=== PATIENT | female | born 1985 | race Caucasian/White ===

== ENCOUNTER 2017-04-02 14:54 | Emergency (ER) | payer OTHER ==
[2017-04-02 15:34] VITALS: BP 130/83; PULSE 81; TEMP 98.7; BMI 34.4
--- NOTE | 2017-04-02 15:34 | PDOC ---
Rapid Medical Evaluation Chief Complaint: Pain, Acute Time Seen by Provider: 04/02/17 15:30 Medical Evaluation: Allergies Allergy/AdvReac Type Severity Reaction Status Date / Time ondansetron Allergy Verified 04/02/17 15:29 04/02/17 15:31 I have performed a brief in-person evaluation of this patient. The patient presents with a chief complaint of nausea, vomiting and diarrhea x 4-5 days. States feeling pressure in mid chest with no shortness of breath or dizziness. Sent to ed from [facility] Pertinent physical exam findings: NAD unlabored breathing, lungs cta heart s1s2 abdomen obese +bowel sounds non tender I have ordered the following: urine hcg labs The patient will proceed to the Ed for further evaluation.
[2017-04-02 16:29] LABS: BASO % 0.4 % (0-2.0); EOS % 0.6 % (0-4.5); HEMATOCRIT 45.5 % (32.4-45.2); HEMOGLOBIN 15.1 GM/dL (10.7-15.3); LYMPH % 21.6 % (8-40); MCHC 33.3 g/dl (32.0-36.0); MEAN CELL VOLUME 84.3 fl (80-96); MEAN PLT VOLUME 8.6 fl (7.5-11.1); MONO % 5.9 % (3.8-10.2); NEUT % 71.5 % (42.8-82.8); PLATELET COUNT 409 K/MM3 (134-434); RDW 13.5 % (11.6-15.6); WHITE BLOOD COUNT 11.8 K/mm3 (4.0-10.0)
[2017-04-02 16:53] LABS: INR 1.11 (0.82-1.09); PROTHROMBIN TIME (PATIENT) 12.5 SEC (9.98-11.88)
[2017-04-02 16:56] LABS: ACTIVATED PTT 28.8 SECONDS (26.9-34.4)
[2017-04-02 17:04] LABS: CALCIUM 8.9 mg/dL (8.5-10.1); CHLORIDE 105 mmol/L (98-107); POTASSIUM 3.7 mmol/L (3.5-5.1); SODIUM 140 mmol/L (136-145)
[2017-04-02 17:12] LABS: ALBUMIN 3.7 g/dl (3.4-5.0); ALK PHOS 63 U/L (45-117); ANION GAP 9 (8-16); BILIRUBIN,TOTAL 0.5 mg/dL (0.2-1.0); BLOOD UREA NITROGEN 10 mg/dL (7-18); CO2 26 mmol/L (21-32); CREATININE 0.4 mg/dL (0.55-1.02); GLUCOSE,RANDOM 126 mg/dL (74-106); SGOT/AST 31 U/L (15-37); SGPT/ALT 56 U/L (12-78); TOT PROT 7.2 g/dl (6.4-8.2)
[2017-04-02] MEDS ORDERED: SODIUM CHLORIDE 500 ML IV STA (19:27)
[2017-04-02] MEDS ORDERED: MAG HYDROX/AL HYDROX/SIMETH 30 ML UNIT-DOSE CUP PO ONE (20:20)
[2017-04-02] MEDS ORDERED: MAG HYDROX/AL HYDROX/SIMETH 30 ML UNIT-DOSE CUP ONE (20:22)
[2017-04-02] MEDS ORDERED: FAMOTIDINE 20 MG/50 ML IVPB 20 MG/50 ML MG IVPB ONE (20:22)
[2017-04-02] MEDS ORDERED: FAMOTIDINE IV 20 MG/12 ML VIAL IVPUSH ONE (20:36)
--- NOTE | 2017-04-02 21:40 | PDOC ---
History of Present Illness - General History Source: Patient Exam Limitations: No Limitations - History of Present Illness Initial Comments: 04/02/17 21:42 The patient is a 31 year old female with history of hyperlipidemia, diabetes who presents to the ED complaining of several days of nausea, NBNB vomiting, and diarrhea with mild epigastric discomfort. No fever or chills. No chest pain or shortness of breath. No headache, blurred vision, or paresthesias. No constipation. <Gisell Simmons - Last Filed: 04/02/17 21:42> <Charo Whipple - Last Filed: 04/02/17 22:41> - General Chief Complaint: Pain, Acute Stated Complaint: VOMITING/DIARRHEA/CHEST PAIN Time Seen by Provider: 04/02/17 15:30 Past History <Gisell Simmons - Last Filed: 04/02/17 21:42> - Past Medical History COPD: No Diabetes: Yes Disorders: Yes (IRREGULAR MENSES, UTI) Hypercholesterolemia: Yes - Family Disease History Family Disease History: Diabetes: Grandparents, Mother - Reproductive History Cervical CA: No Dysfunctional Uterine Bleeding: No Ectopic : No Endometrial CA: No Polycystic Ovaries: No Tubal Ligation: No - Immunization History Immunization Up to Date: Yes - Suicide/Smoking/Psychosocial Hx Smoking Status: No Smoking History: Never smoked Have you smoked in the past 12 months: No Number of Cigarettes Smoked Daily: 0 Information on smoking cessation initiated: No Hx Alcohol Use: No Drug/Substance Use Hx: No Substance Use Type: None <Charo Whipple - Last Filed: 04/02/17 22:41> - Past Medical History Allergies/Adverse Reactions: Allergies Allergy/AdvReac Type Severity Reaction Status Date / Time ondansetron Allergy Verified 04/02/17 15:29 Home Medications: Ambulatory Orders Glyburide/Metformin HCl [Glyburide-Metformin 2.5-500 mg] 1 each PO BID 08/30/15 Losartan Potassium 50 mg PO DAILY 08/30/15 Metoclopramide HCl [Reglan] 10 mg PO BID PRN #10 tablet 08/30/15 Abd/GI Specific PMHX - Complaint Specific PMHX Colitis: No Diverticulitis: No Gall Bladder Disease: No GERD: No Hepatitis: No Irritable Bowel Synd (IBS): No Pancreatitis: No GI Ulcer Disease: No <Charo Whipple - Last Filed: 04/02/17 22:41> Review of Systems - Review of Systems Able to Perform ROS?: Yes Comments:: 04/02/17 21:44 CONSTITUTIONAL: Absent: fever, chills, diaphoresis, generalized weakness, malaise, loss of appetite HEENT: Absent: rhinorrhea, nasal congestion, throat pain, throat swelling, difficulty swallowing, mouth swelling, ear pain, eye pain, visual Changes CARDIOVASCULAR: Absent: chest pain, syncope, palpitations, irregular heart rate, lightheadedness , peripheral edema RESPIRATORY: Absent: cough, shortness of breath, dyspnea with exertion, orthopnea, wheezing, stridor, hemoptysis GASTROINTESTINAL: Present: nausea, epigastric pain, NBNB, diarrhea Absent: abdominal distension, constipation, melena, hematochezia GENITOURINARY: Absent: dysuria, frequency, urgency, hesitancy, hematuria, flank pain, genital pain MUSCULOSKELETAL: Absent: myalgia, arthralgia, joint swelling SKIN: Absent: rash, itching, pallor HEMATOLOGIC/IMMUNOLOGIC: Absent: easy bleeding, easy bruising, lymphadenopathy, frequent infections ENDOCRINE: Absent: unexplained weight gain, unexplained weight loss, heat intolerance, cold intolerance NEUROLOGIC: Absent: headache, focal weakness or paresthesias, dizziness, unsteady gait, seizure, mental status changes, bladder or bowel incontinence PSYCHIATRIC: Absent: anxiety, depression, suicidal or homicidal ideation, hallucinations. <Gisell Simmons - Last Filed: 04/02/17 21:42> *Physical Exam - Vital Signs Last Vital Signs Temp Pulse Resp BP Pulse Ox 98.7 F 81 16 130/83 97 04/02/17 15:30 04/02/17 15:30 04/02/17 15:30 04/02/17 15:30 04/02/17 15:30 - Physical Exam Comments: 04/02/17 21:46 GENERAL: Well developed, well nourished. Awake and alert. No acute distress. HEENT: +Dry mucous membranes. Normocephalic, atraumatic. PERRLA, EOMI. No conjunctival pallor. Sclera are non-icteric. Oropharynx is clear. NECK: Supple. Full ROM. No JVD. Carotid pulses 2+ and symmetric, without bruits. No thyromegaly. No lymphadenopathy. CARDIOVASCULAR: Regular rate and rhythm. No murmurs, rubs, or gallops. Distal pulses are 2+ and symmetric. PULMONARY: No evidence of respiratory distress. Lungs clear to auscultation bilaterally. No wheezing, rales or rhonchi. ABDOMINAL: Soft. Non-tender. Non-distended. No rebound or guarding. No organomegaly. Normoactive bowel sounds. MUSCULOSKELETAL Normal range of motion at all joints. No bony deformities or tenderness. No CVA tenderness. EXTREMITIES: No cyanosis. No clubbing. No edema. No calf tenderness. SKIN: Warm and dry. Normal capillary refill. No rashes. No jaundice. NEUROLOGICAL: Alert, awake, appropriate. Cranial nerves 2-12 intact. No deficits to light touch and temperature in face, upper extremities and lower extremities. No motor deficits in the in face, upper extremities and lower extremities. Normoreflexic in the upper and lower extremities. Normal speech. Gait is normal without ataxia. PSYCHIATRIC: Cooperative. Good eye contact. Appropriate mood and affect. <Gisell Simmons - Last Filed: 04/02/17 21:42> - Vital Signs Last Vital Signs Temp Pulse Resp BP Pulse Ox 98.7 F 81 16 130/83 97 04/02/17 15:30 04/02/17 15:30 04/02/17 15:30 04/02/17 15:30 04/02/17 15:30 <Charo Whipple - Last Filed: 04/02/17 22:41> ED Treatment Course - LABORATORY CBC & Chemistry Diagram: 04/02/17 16:06 04/02/17 16:06 - ADDITIONAL ORDERS Additional order review: Laboratory Results 04/02/17 04/02/17 04/02/17 19:30 16:06 16:06 PT with INR 12.50 H INR 1.11 PTT (Actin FS) 28.8 Sodium 140 Potassium 3.7 Chloride 105 Carbon Dioxide 26 Anion Gap 9 BUN 10 Creatinine 0.4 L Creat Clearance w eGFR > 60 Random Glucose 126 H Calcium 8.9 Total Bilirubin 0.5 D AST 31 D ALT 56 D Alkaline Phosphatase 63 Creatine Kinase 40 Troponin I < 0.02 Total Protein 7.2 Albumin 3.7 Serum , Qual Negative 04/02/17 16:06 RBC 5.40 H MCV 84.3 MCHC 33.3 RDW 13.5 MPV 8.6 Neutrophils % 71.5 Lymphocytes % 21.6 Monocytes % 5.9 Eosinophils % 0.6 Basophils % 0.4 - Medications Given in the ED: ED Medications Discontinued Medications Generic Name Dose Route Start Last Admin Trade Name Freq PRN Reason Stop Dose Admin Al Hydroxide/Mg Hydroxide 30 ml 04/02/17 20:20 04/02/17 20:27 Mylanta Oral Suspension - PO 04/02/17 20:21 30 ml ONCE ONE Administration Sodium Chloride 500 mls @ 500 mls/hr 04/02/17 19:27 04/02/17 20:19 Normal Saline - IV 04/02/17 20:26 500 mls/hr ASDIR STA Administration Famotidine 20 mg in 12 mls @ 144 mls/hr 04/02/17 20:36 04/02/17 20:39 Pepcid 20 Mg/12 Ml Push IVPUSH 04/02/17 20:40 144 mls/hr NOW ONE Administration <Gisell Simmons - Last Filed: 04/02/17 21:42> - LABORATORY CBC & Chemistry Diagram: 04/02/17 16:06 04/02/17 16:06 - ADDITIONAL ORDERS Additional order review: Laboratory Results 04/02/17 04/02/17 04/02/17 19:30 16:06 16:06 PT with INR 12.50 H INR 1.11 PTT (Actin FS) 28.8 Sodium 140 Potassium 3.7 Chloride 105 Carbon Dioxide 26 Anion Gap 9 BUN 10 Creatinine 0.4 L Creat Clearance w eGFR > 60 Random Glucose 126 H Calcium 8.9 Total Bilirubin 0.5 D AST 31 D ALT 56 D Alkaline Phosphatase 63 Creatine Kinase 40 Troponin I < 0.02 Total Protein 7.2 Albumin 3.7 Serum , Qual Negative 04/02/17 16:06 RBC 5.40 H MCV 84.3 MCHC 33.3 RDW 13.5 MPV 8.6 Neutrophils % 71.5 Lymphocytes % 21.6 Monocytes % 5.9 Eosinophils % 0.6 Basophils % 0.4 - Medications Given in the ED: ED Medications Discontinued Medications Generic Name Dose Route Start Last Admin Trade Name Justusq PRN Reason Stop Dose Admin Al Hydroxide/Mg Hydroxide 30 ml 04/02/17 20:20 04/02/17 20:27 Mylanta Oral Suspension - PO 04/02/17 20:21 30 ml ONCE ONE Administration Sodium Chloride 500 mls @ 500 mls/hr 04/02/17 19:27 04/02/17 20:19 Normal Saline - IV 04/02/17 20:26 500 mls/hr ASDIR STA Administration Famotidine 20 mg in 12 mls @ 144 mls/hr 04/02/17 20:36 04/02/17 20:39 Pepcid 20 Mg/12 Ml Push IVPUSH 04/02/17 20:40 144 mls/hr NOW ONE Administration <Charo Whipple - Last Filed: 04/02/17 22:41> *DC/Admit/Observation/Transfer - Attestations Scribe Attestion: 04/02/17 21:46 Documentation prepared by Gisell Simmons, acting as emergency medical dispatcher for Charo Whipple MD. <Gisell Simmons - Last Filed: 04/02/17 21:42> <Charo Whipple - Last Filed: 04/02/17 22:41> Diagnosis at time of Disposition: Gastroenteritis - Discharge Dispostion Disposition: HOME Condition at time of disposition: Stable - Referrals Referrals: Vlad Bhat MD [Primary Care Provider] - - Patient Instructions Printed Discharge Instructions: DI for Viral Gastroenteritis -- Adult Additional Instructions: please advance your diet slowly. Drink fluids first then try solids such as bananas,toast,rice and applesauce - Post Discharge Activity
[2017-04-02] MEDS ORDERED: FAMOTIDINE IV 20 MG/12 ML VIAL IVPUSH SCH (22:00)
--- NOTE | 2017-04-03 10:55 | EKG ---
Test Reason : Blood Pressure : / mmHG Vent. Rate : 073 BPM Atrial Rate : 073 BPM P-R Int : 184 ms QRS Dur : 090 ms QT Int : 374 ms P-R-T Axes : 050 024 022 degrees QTc Int : 412 ms NORMAL SINUS RHYTHM CANNOT RULE OUT ANTERIOR INFARCT , AGE UNDETERMINED ABNORMAL ECG WHEN COMPARED WITH ECG OF 14-SEP-2014 22:20, NO SIGNIFICANT CHANGE WAS FOUND Confirmed by MADHU REBOLLAR, MARIVEL ([id number]) on 04/03/2017 10:55:02 AM Referred By: Confirmed By:MARIVEL LEUNG MD
== END 2017-04-02 23:29 | disposition home or self-care (01) ==
LOC: JER 14:54
PROC: 3E033GC Introduction of Other Therapeutic Substance into Peripheral Vein, Percutaneous Approach (ICD-10-PCS; principal; 2017-04-02)
PROC: 3E0337Z Introduction of Electrolytic and Water Balance Substance into Peripheral Vein, Percutaneous Approach (ICD-10-PCS; 2017-04-02)
PROC: 3E033GC Introduction of Other Therapeutic Substance into Peripheral Vein, Percutaneous Approach (ICD-10-PCS; 2017-04-02)
PROC: 3E0337Z Introduction of Electrolytic and Water Balance Substance into Peripheral Vein, Percutaneous Approach (ICD-10-PCS; 2017-04-02)
DX: K52.9 Noninfective gastroenteritis and colitis, unspecified (principal); E78.5 Hyperlipidemia, unspecified; E11.9 Type 2 diabetes mellitus without complications
CPT/HCPCS: 36415; 80053; 82550; 84484; 84703; 85025; 85610; 85730; 93005; 93010; 96361; 96365; 99282-25

== ENCOUNTER 2017-04-23 21:15 | Emergency (ER) | payer OTHER ==
--- NOTE | 2017-04-23 21:44 | PDOC ---
Rapid Medical Evaluation Time Seen by Provider: 04/23/17 21:43 Medical Evaluation: Allergies Allergy/AdvReac Type Severity Reaction Status Date / Time ondansetron Allergy Verified 04/02/17 15:29 04/23/17 21:43 31 year old female with IDDM presenting with right 2nd toe pain after a fall yesterday. -Right foot xray -To FT for further evaluation Discharge Disposition - Referrals Referrals: Vlad Bhat MD [Primary Care Provider] - - Patient Instructions - Post Discharge Activity
[2017-04-23 21:47] VITALS: BP 153/87; PULSE 86; TEMP 99.2; BMI 36.0
--- NOTE | 2017-04-23 21:51 | PDOC ---
History of Present Illness - General Chief Complaint: Pain Stated Complaint: FALL Time Seen by Provider: 04/23/17 21:43 History Source: Patient - History of Present Illness Pain Location: reports: lower extremity Method of Injury: Yes: direct blow Past History - Past Medical History Allergies/Adverse Reactions: Allergies Allergy/AdvReac Type Severity Reaction Status Date / Time ondansetron Allergy Verified 04/23/17 21:44 Home Medications: Ambulatory Orders Glyburide/Metformin HCl [Glyburide-Metformin 2.5-500 mg] 1 each PO BID 08/30/15 Losartan Potassium 50 mg PO DAILY 08/30/15 Metoclopramide HCl [Reglan] 10 mg PO BID PRN #10 tablet 08/30/15 COPD: No Diabetes: Yes Disorders: Yes (IRREGULAR MENSES, UTI) Hypercholesterolemia: Yes - Family Disease History Family Disease History: Diabetes: Grandparents, Mother - Reproductive History Cervical CA: No Dysfunctional Uterine Bleeding: No Ectopic : No Endometrial CA: No Polycystic Ovaries: No Tubal Ligation: No - Immunization History Immunization Up to Date: Yes - Suicide/Smoking/Psychosocial Hx Smoking Status: No Smoking History: Never smoked Have you smoked in the past 12 months: No Number of Cigarettes Smoked Daily: 0 Information on smoking cessation initiated: No Hx Alcohol Use: No Drug/Substance Use Hx: No Substance Use Type: None Review of Systems - Review of Systems Musculoskeletal: Yes: Joint Pain, Joint Swelling *Physical Exam - Vital Signs Last Vital Signs Temp Pulse Resp BP Pulse Ox 99.2 F 86 20 153/87 97 04/23/17 21:45 04/23/17 21:45 04/23/17 21:45 04/23/17 21:45 04/23/17 21:45 - Physical Exam General Appearance: Yes: Appropriately Dressed, Mild Distress Respiratory/Chest: negative: Respiratory Distress Musculoskeletal: positive: Other (ecchymosis over dorsum of R 2nd and 3rd toes) Integumentary: positive: Dry, Warm Neurologic: positive: Fully Oriented, Alert, Normal Mood/Affect Medical Decision Making - Medical Decision Making 04/23/17 21:50 31-year-old female, no significant history here with right foot injury after an injury. States she stubbed her toe on metal part of the stairs at home yesterday. Patient well-appearing and in mild distress w/ minimal swelling to right second and third toes with ecchymosis. X-ray shows a non-displaced fracture to proximal phalanx of right third toe and possible non-displaced fx to middle phalanx of R 2nd toe. Donnie tape placed, ortho shoe given. pt to take motrin prn and f/u with ortho *DC/Admit/Observation/Transfer Diagnosis at time of Disposition: Toe fracture, right Qualifiers: Encounter type: initial encounter Toe: unspecified toe Fracture type: closed Fracture alignment: nondisplaced Qualified Code(s): S92.911A - Unspecified fracture of right toe(s), initial encounter for closed fracture - Discharge Dispostion Disposition: HOME Condition at time of disposition: Good - Referrals Referrals: Vlad Bhat MD [Primary Care Provider] - Yariel Lloyd MD [Staff Physician] - - Patient Instructions Printed Discharge Instructions: DI for Toe Fracture Additional Instructions: Wear ortho shoe for comfort and take Motrin as needed for pain. Follow-up with Dr. Lloyd of orthopedics in 1-2 weeks - Post Discharge Activity Forms/Work/School Notes: Back to Work
== END 2017-04-23 22:30 | disposition home or self-care (01) ==
LOC: JERFT 21:15
DX: S92.514A Nondisplaced fracture of proximal phalanx of right lesser toe(s), initial encounter for closed fracture (principal); W10.8XXA Fall (on) (from) other stairs and steps, initial encounter; Y93.89 Activity, other specified; Y92.038 Other place in apartment as the place of occurrence of the external cause; Y99.8 Other external cause status; E11.9 Type 2 diabetes mellitus without complications; Z79.84 Long term (current) use of oral hypoglycemic drugs; E78.00 Pure hypercholesterolemia, unspecified
CPT/HCPCS: 73630-TC-RT-FY; 99281-25

== ENCOUNTER 2019-01-27 22:51 | Inpatient (IN) | payer OTHER ==
--- NOTE | 2019-01-28 00:18 | PDOC ---
Attending Attestation - Resident Resident Name: Trice Win - ED Attending Attestation I have performed the following: I have examined & evaluated the patient, The case was reviewed & discussed with the resident, I agree w/resident's findings & plan - HPI HPI: 01/28/19 02:26 see resident hpi - Physicial Exam PE: 01/28/19 02:27 agree with resident exam - Medical Decision Making 01/28/19 02:28 33-year-old female with abdominal pain vomiting and diarrhea Ultrasound the right upper quadrant limits Patient now localizing pain to the lower abdomen with tenderness over McBurney' s point Plan for CT scan abdomen and pelvis, IV hydration and antiemetics Pending CT results will DC home if tolerating p.o.
[2019-01-28] MEDS ORDERED: SODIUM CHLORIDE 0.9% 500 ML INFUS.BAG IV ONE ×2 (01:44→06:59)
[2019-01-28] MEDS ORDERED: MAG HYDROX/AL HYDROX/SIMETH 30 ML UNIT-DOSE CUP PO ONE (01:44)
[2019-01-28] MEDS ORDERED: MAG HYDROX/AL HYDROX/SIMETH 30 ML UNIT-DOSE CUP ONE (02:32)
[2019-01-28 02:48] LABS: BASO % 1.2 % (0-2.0); EOS % 0.6 % (0-4.5); HEMATOCRIT 47.9 % (32.4-45.2); HEMOGLOBIN 16.3 GM/dL (10.7-15.3); LYMPH % 20.9 % (8-40); MCH 28.7 pg (25.7-33.7); MEAN CELL VOLUME 84.4 fl (80-96); MEAN PLT VOLUME 8.8 fl (7.5-11.1); MONO % 4.6 % (3.8-10.2); NEUT % 72.7 % (42.8-82.8); PLATELET COUNT 393 K/MM3 (134-434); RBC 5.68 M/mm3 (3.60-5.2); RDW 13.7 % (11.6-15.6); WHITE BLOOD COUNT 14.3 K/mm3 (4.0-10.0)
[2019-01-28 03:23] LABS: ALBUMIN 3.7 g/dl (3.4-5.0); BILIRUBIN,TOTAL 0.6 mg/dL (0.2-1); BLOOD UREA NITROGEN 9.7 mg/dL (7-18); CREATININE 0.5 mg/dL (0.55-1.3); POTASSIUM 3.9 mmol/L (3.5-5.1)
--- NOTE | 2019-01-28 04:05 | PDOC ---
History of Present Illness - General Chief Complaint: Pain, Acute Stated Complaint: ABD PAIN/VOMITING Time Seen by Provider: 01/28/19 00:13 - History of Present Illness Initial Comments: The patient is a 33 y/o female with PMH of HTN and NIDDM who presents with acute onset of abdominal pain, vomiting and diarrhea. Pain started around 2 p.m. this afternoon while patient was at work at [employer]. Pain is intermittent, sharp and localized to her epigastrium. Three episodes of loose stools. No fevers/chills. Past History - Past Medical History Allergies/Adverse Reactions: Allergies Allergy/AdvReac Type Severity Reaction Status Date / Time ondansetron Allergy Verified 01/27/19 22:53 Home Medications: Ambulatory Orders Glyburide/Metformin HCl [Glyburide-Metformin 2.5-500 mg] 1 each PO BID 08/30/15 Losartan Potassium 50 mg PO DAILY 08/30/15 Metoclopramide HCl [Reglan] 10 mg PO BID PRN #10 tablet 08/30/15 COPD: No Diabetes: Yes (type 2) Disorders: Yes (IRREGULAR MENSES, UTI) Hypercholesterolemia: Yes - Reproductive History Cervical CA: No Dysfunctional Uterine Bleeding: No Ectopic : No Endometrial CA: No Polycystic Ovaries: No Tubal Ligation: No - Immunization History Immunization Up to Date: Yes - Psycho Social/Smoking Cessation Hx Smoking Status: No Smoking History: Never smoked Have you smoked in the past 12 months: No Number of Cigarettes Smoked Daily: 0 Hx Alcohol Use: No Drug/Substance Use Hx: No Substance Use Type: None Review of Systems - Review of Systems Constitutional: No: Chills, Fever HEENTM: No: Recent change in vision Respiratory: No: Cough, Shortness of Breath Cardiac (ROS): No: Chest Pain, Lightheadedness, Palpitations ABD/GI: Yes: Diarrhea, Vomiting, Abdominal cramping. No: Constipated *Physical Exam - Vital Signs Last Vital Signs Temp Pulse Resp BP Pulse Ox 99.0 F 95 H 18 165/87 100 01/27/19 22:52 01/27/19 22:52 01/27/19 22:52 01/27/19 22:52 01/27/19 22:52 - Physical Exam General Appearance: Yes: Nourished, Appropriately Dressed HEENT: positive: Normal Voice, Hearing Grossly Normal Neck: positive: Trachea midline, Supple Respiratory/Chest: positive: Lungs Clear, Normal Breath Sounds Cardiovascular: positive: S1, S2 Gastrointestinal/Abdominal: positive: Other (Epigastric TTP w/o peritoneal sign) ED Treatment Course - LABORATORY CBC & Chemistry Diagram: 01/28/19 02:25 01/28/19 02:25 - ADDITIONAL ORDERS Additional order review: Laboratory Results 01/28/19 01/28/19 01/28/19 02:25 02:25 02:25 Sodium 135 L Potassium 3.9 Chloride 101 Carbon Dioxide 26 Anion Gap 8 BUN 9.7 Creatinine 0.5 L Est GFR (CKD-EPI)AfAm 145.33 Est GFR (CKD-EPI)NonAf 125.39 Random Glucose 310 H Calcium 9.0 Total Bilirubin 0.6 AST 13 L ALT 26 Alkaline Phosphatase 99 Total Protein 7.0 Albumin 3.7 Lipase 65 L Serum , Qual Negative 01/28/19 02:25 RBC 5.68 H MCV 84.4 MCHC 34.0 RDW 13.7 MPV 8.8 Neutrophils % 72.7 Lymphocytes % 20.9 Monocytes % 4.6 Eosinophils % 0.6 Basophils % 1.2 - RADIOLOGY Radiology Studies Ordered: Category Date Time Status ABDOMEN & PELVIS CT WITH CONTR [CT] Stat CT Scan 01/28/19 02:28 Taken ABDOMEN US -LIMITED [US] Stat Ultrasound 01/28/19 00:50 Taken - Medications Given in the ED: ED Medications Discontinued Medications Generic Name Dose Route Start Last Admin Trade Name Freq PRN Reason Stop Dose Admin Al Hydroxide/Mg Hydroxide 30 ml 01/28/19 01:44 01/28/19 02:36 Mylanta Oral Suspension - PO 01/28/19 01:45 30 ml ONCE ONE Administration Sodium Chloride 1,000 ml 01/28/19 01:44 01/28/19 02:36 Normal Saline - IV 01/28/19 01:45 1,000 ml ONCE ONE Administration Medical Decision Making - Medical Decision Making 01/28/19 05:00 33 y/o female with acute onset of epigastric pain and associated emesis. VS unremarkable Mild epigastric TTP w/o peritoneal sign. Frontal diagnosis: bilary colic, early appendicitis, gastroenteritis, pancreatitis, SBO, bowel perforation, gastroparesis. PLAN: CBC,CMP, Lipase, Serum , GB U/S Leukocytosis (14.3) - other labs GB US negative for acute cholecystitis; patient reassessed @ bedside, continues to have epigastric TTP GI cocktail + CTAP pending 01/28/19 06:58 Patient @ CT - will sign out to Dr. Chandler (Attending) for further management. Discharge - Discharge Information Problems reviewed: Yes Clinical Impression/Diagnosis: Abdominal pain - Follow up/Referral Referrals: Vlad Bhat MD [Primary Care Provider] - - Patient Discharge Instructions - Post Discharge Activity
[2019-01-28] MEDS ORDERED: SODIUM CHLORIDE 0.9% 1000 ML INFUS.BAG IV ONE (07:59)
--- NOTE | 2019-01-28 08:01 | PDOC ---
*Physical Exam - Vital Signs Last Vital Signs Temp Pulse Resp BP Pulse Ox 98.0 F 84 18 134/88 99 01/28/19 06:30 01/28/19 06:30 01/28/19 06:30 01/28/19 06:30 01/28/19 06:30 - Physical Exam Comments: 01/28/19 08:00 Patient is awake alert no acute distress lungs are clear bilaterally heart is regular no murmurs rubs or gallops abdomen is soft there is mild epigastric tenderness no rebound no guarding negative Marrufo's negative CVA tenderness extremities are warm well perfused. Neurologically awake alert and oriented x3 skin is warm and dry no rash ED Treatment Course - LABORATORY CBC & Chemistry Diagram: 01/28/19 02:25 01/28/19 02:25 - ADDITIONAL ORDERS Additional order review: Laboratory Results 01/28/19 01/28/19 01/28/19 02:25 02:25 02:25 Sodium 135 L Potassium 3.9 Chloride 101 Carbon Dioxide 26 Anion Gap 8 BUN 9.7 Creatinine 0.5 L Est GFR (CKD-EPI)AfAm 145.33 Est GFR (CKD-EPI)NonAf 125.39 Random Glucose 310 H Calcium 9.0 Total Bilirubin 0.6 AST 13 L ALT 26 Alkaline Phosphatase 99 Total Protein 7.0 Albumin 3.7 Lipase 65 L Serum , Qual Negative 01/28/19 02:25 RBC 5.68 H MCV 84.4 MCHC 34.0 RDW 13.7 MPV 8.8 Neutrophils % 72.7 Lymphocytes % 20.9 Monocytes % 4.6 Eosinophils % 0.6 Basophils % 1.2 - Medications Given in the ED: ED Medications Discontinued Medications Generic Name Dose Route Start Last Admin Trade Name Freq PRN Reason Stop Dose Admin Al Hydroxide/Mg Hydroxide 30 ml 01/28/19 01:44 01/28/19 02:36 Mylanta Oral Suspension - PO 01/28/19 01:45 30 ml ONCE ONE Administration Sodium Chloride 1,000 ml 01/28/19 01:44 01/28/19 02:36 Normal Saline - IV 01/28/19 01:45 1,000 ml ONCE ONE Administration Medical Decision Making - Medical Decision Making 01/28/19 08:00 33-year-old female diabetic here with nausea vomiting and diarrhea. Seen by the overnight team was signed out to me I assumed care of the patient at 7 AM. Briefly she states that she has had nausea vomiting and diarrhea starting yesterday had only a few episodes of nonbloody loose watery stools followed by several episodes of intractable emesis also nonbloody nonbilious. States that last emesis was this early a.m. she was not given any Zofran as she is allergic to the medication denies any fevers or chills no recent travel no sick contacts no recent antibiotic use no other current complaints was given Maalox overnight states that currently she is somewhat improved of her symptoms. On exam patient has mild epigastric tenderness no rebound no guarding. Although surgical history is a labs reviewed and noted for mild leukocytosis of 14. Otherwise unremarkable UA is pending CT abdomen pelvis and ultrasound right upper quadrant is pending 01/28/19 10:27 pt with large UTI on UA ct a/p unremarkble. us with fatty liver. due to excessive vomiting uti, gallito admit to medicine. given reglan, pepcid maalox. ceftriaxone for uti. sugar noted to be 300 , no anion gap, noted to have ketones. will repeat sugar after hydration. pt pcp dr bhat, d/w oliverio Lin, will admit to dr ramires. Discharge - Discharge Information Problems reviewed: Yes Clinical Impression/Diagnosis: Abdominal pain, UTI (urinary tract infection), Vomiting, Diabetes - Admission Yes - Follow up/Referral Referrals: Vlad Bhat MD [Primary Care Provider] - - Patient Discharge Instructions - Post Discharge Activity
[2019-01-28 09:04] LABS: URINE APPEARANCE CLEAR; URINE BILIRUBIN NEGATIVE (NEGATIVE); URINE COLOR YELLOW; URINE GLUCOSE (UA) LARGE (NEGATIVE); URINE KETONE 40 mg/dl (NEGATIVE)
[2019-01-28 09:05] LABS: EPI CELLS 0.4 /HPF (0-5/HPF); HYALINE CASTS 0.35 /lpf (0-8); URINE LEUK ESTERASE NEGATIVE (NEGATIVE); URINE NITRITE NEGATIVE (NEGATIVE); URINE PROTEIN 2+ (NEGATIVE); URINE RBC 6.1 /hpf (0-4); URINE UROBILINOGEN 0.2 mg/dL (0.2-1.0); URINE WBC 109.8 /hpf (0-5)
[2019-01-28 09:06] LABS: URINE BACTERIA 679.8 /hpf (NEGATIVE)
[2019-01-28] MEDS ORDERED: METOCLOPRAMIDE HCL INJECTION 10 MG/2 ML VIAL IVPUSH ONE (10:00)
[2019-01-28] MEDS ORDERED: CEFTRIAXONE 1,000 MG in DEXTROSE 5%-WATER - 50 ML IVPB ONE (10:00)
[2019-01-28] MEDS ORDERED: FAMOTIDINE 20 MG/50 ML IVPB 20 MG/50 ML MG IVPB ONE ×2 (10:01→10:40)
[2019-01-28] MEDS ORDERED: CEFTRIAXONE 1 GM/50 ML BAG ONE (10:40)
[2019-01-28] MEDS ORDERED: METOCLOPRAMIDE HCL INJECTION 10 MG/2 ML VIAL ONE (10:40)
[2019-01-28] MEDS ORDERED: METOCLOPRAMIDE HCL INJECTION 10 MG/2 ML VIAL IVPB PRN (10:45)
[2019-01-28] MEDS: INSULIN SLIDING SCALE (NOVOLOG) 1 VIAL SQ SCH ×3 (13:00→23:08)
--- NOTE | 2019-01-28 13:02 | CON.GI ---
Consult Consult Specialty:: Gastroenterology Referred by:: Dr. Livingston - History of Present Illness Chief Complaint: Abdominal pain History of Present Illness: 33yo female h/o DM presenting with abdominal pain, n/v and diarrhea x 1 day. Pt reports developing sudden onset abdominal pain mostly in epigastric and periumbilical region yesterday around 5pm, described as sharp and crampy in nature. Some radiation to lower back. Also with nausea and vomiting, and loose yellow stool up to 3-4x yesterday, no blood. Took immodium with relief. Denies fever/chills. Ate chicken and rice around 12pm yesterday, denies outside or undercooked foods. Denies recent antibiotic use or sick contacts. No recent travel. No prior similar episodes. Pain now improving, no further n/v or diarrhea. - History Source History Provided By: Patient - Alcohol/Substance Use Hx Alcohol Use: No - Smoking History Smoking history: Never smoked Have you smoked in the past 12 months: No Aproximately how many cigarettes per day: 0 Home Medications - Allergies Allergies/Adverse Reactions: Allergies Allergy/AdvReac Type Severity Reaction Status Date / Time ondansetron Allergy Verified 01/27/19 22:53 - Home Medications Home Medications: Ambulatory Orders Glyburide/Metformin HCl [Glyburide-Metformin 2.5-500 mg] 1 each PO BID 08/30/15 Losartan Potassium 50 mg PO DAILY 08/30/15 Metoclopramide HCl [Reglan] 10 mg PO BID PRN #10 tablet 08/30/15 Review of Systems - Review of Systems Constitutional: reports: No Symptoms Cardiovascular: reports: No Symptoms Respiratory: reports: No Symptoms Gastrointestinal: reports: Abdominal Pain Genitourinary: reports: No Symptoms Musculoskeletal: reports: No Symptoms Neurological: reports: No Symptoms Physical Exam-GI Vital Signs: Vital Signs Temperature 98.0 F 01/28/19 06:30 Pulse Rate 84 01/28/19 06:30 Respiratory Rate 18 01/28/19 06:30 Blood Pressure 134/88 01/28/19 06:30 O2 Sat by Pulse Oximetry (%) 99 01/28/19 06:30 Labs: CBC, BMP 01/28/19 02:25 01/28/19 02:25 Imaging - Results Cat Scan: Report Reviewed, Image Reviewed Ultrasound: Report Reviewed Problem List - Problems (1) Abdominal pain Assessment/Plan: 33yo female h/o DM presenting with epigastric/periumbilical abdominal pain, n/v and diarrhea x 1 day with leucocytosis. Now appears to be clinically improving. US and CT imaging revealing fatty liver, no gallstones or evidence of pancreatitis. Possible mildly dilated SB loops with hyperemia. Suspect infectious etiology or self limiting gastroenteritis. Also with UTI. No evidence of gallbladder/biliary pathology. -Continue supportive measures -Clear liquid diet as tolerated -PPI daily for now -Follow up urine cultures -If further loose stool please send stool C difficile, ova/parasites and cultures -Optimize glycemic control -Further recommendations including need for additional testing pending above and if symptoms persist Code(s): R10.9 - UNSPECIFIED ABDOMINAL PAIN
--- NOTE | 2019-01-28 14:39 | HP ---
Admitting History and Physical - Primary Care Physician PCP: Vlad Bhat - Admission Chief Complaint: Abdominal pain, Nausea/vomiting History of Present Illness: Patient is a 33 y/o female with past medical history of DM. Patient states developing sharp, intermittent epigastric pain radiating to mid abdomen yesterday at 5pm. Epigastric pain was accompanied with nausea, vomiting, non- bloody diarrhea. She was unable to keep food down, denies fever or chills. History Source: Patient Limitations to Obtaining History: No Limitations - Past Medical History Endocrine: Yes: Diabetes Mellitus - Past Surgical History Past Surgical History: Yes: - Smoking History Smoking history: Never smoked Have you smoked in the past 12 months: No Aproximately how many cigarettes per day: 0 - Alcohol/Substance Use Hx Alcohol Use: No - Social History Usual Living Arrangement: Yes: Alone ADL: Independent History of Recent Travel: No Home Medications - Allergies Allergies/Adverse Reactions: Allergies Allergy/AdvReac Type Severity Reaction Status Date / Time ondansetron Allergy Verified 01/27/19 22:53 - Home Medications Home Medications: Ambulatory Orders Glyburide/Metformin HCl [Glyburide-Metformin 2.5-500 mg] 1 each PO BID 08/30/15 Losartan Potassium 50 mg PO DAILY 08/30/15 Metoclopramide HCl [Reglan] 10 mg PO BID PRN #10 tablet 08/30/15 Review of Systems - Review of Systems Constitutional: reports: Loss of Appetite Eyes: reports: No Symptoms HENT: reports: No Symptoms Neck: reports: No Symptoms Cardiovascular: reports: No Symptoms Respiratory: reports: Cough Gastrointestinal: reports: Abdominal Pain, Diarrhea, Nausea, Vomiting Genitourinary: reports: No Symptoms Breasts: reports: No Symptoms Reported Musculoskeletal: reports: No Symptoms Integumentary: reports: No Symptoms Neurological: reports: No Symptoms Endocrine: reports: No Symptoms Hematology/Lymphatic: reports: No Symptoms Psychiatric: reports: No Symptoms Physical Examination Vital Signs: Vital Signs Temperature 98.0 F 01/28/19 06:30 Pulse Rate 84 01/28/19 06:30 Respiratory Rate 18 01/28/19 06:30 Blood Pressure 134/88 01/28/19 06:30 O2 Sat by Pulse Oximetry (%) 98 01/28/19 13:58 Constitutional: Yes: No Distress, Calm, Obese Eyes: Yes: Conjunctiva Clear HENT: Yes: Atraumatic Cardiovascular: Yes: Regular Rate and Rhythm Respiratory: Yes: Regular, CTA Bilaterally Gastrointestinal: Yes: Normal Bowel Sounds, Soft, Tenderness (ruq/luq), Tenderness, Epigastrium Musculoskeletal: Yes: WNL Extremities: Yes: WNL Edema: No Neurological: Yes: Alert, Oriented Psychiatric: Yes: Alert, Oriented Labs: CBC, BMP 01/28/19 02:25 01/28/19 02:25 Imaging - Results Cat Scan: Report Reviewed Ultrasound: Report Reviewed Problem List - Problems (1) Abdominal pain Assessment/Plan: -GI consult -CTAP shows hepatomegaly with fatty infiltration, no gross gallstones, fluid- filled slightly dilated distal small bowel loops with mild enhancement/ hyperemia of its wall, suggestive of inflammatory vs infectious process, fluid stool present in cecum and proximal ascending colon without gross wall thickening, small amount of free fluid in the left side of the pelvis in the RLQ , bilateral ovarian simple cysts in left ovary -Pantoprazole -Reglan -Abd US shows hepatomegaly with fatty infiltration vs hepatocellular disease -clear liquid diet Code(s): R10.9 - UNSPECIFIED ABDOMINAL PAIN (2) Urinary tract infection Assessment/Plan: -UC pending -ID on board -leukocytosis Code(s): N39.0 - URINARY TRACT INFECTION, SITE NOT SPECIFIED (3) Nausea & vomiting Assessment/Plan: -GI consult -CTAP shows hepatomegaly with fatty infiltration, no gross gallstones, fluid- filled slightly dilated distal small bowel loops with mild enhancement/ hyperemia of its wall, suggestive of inflammatory vs infectious process, fluid stool present in cecum and proximal ascending colon without gross wall thickening, small amount of free fluid in the left side of the pelvis in the RLQ , bilateral ovarian simple cysts in left ovary -Pantoprazole -Reglan -Abd US shows hepatomegaly with fatty infiltration vs hepatocellular disease -clear liquid Code(s): R11.2 - NAUSEA WITH VOMITING, UNSPECIFIED Qualifiers: Vomiting type: unspecified Vomiting Intractability: non-intractable Qualified Code(s): R11.2 - Nausea with vomiting, unspecified (4) Diabetes Assessment/Plan: -[facility] ACHS -ISS -HgA1c -Metformin Code(s): E11.9 - TYPE 2 DIABETES MELLITUS WITHOUT COMPLICATIONS
[2019-01-28] MEDS ORDERED: metFORMIN HCL 500 MG TABLET (FP) PO SCH (16:30)
--- NOTE | 2019-01-28 16:45 | CON.ID ---
Consult Reason for Consultation:: leukocytosis - History of Present Illness Chief Complaint: abdominal pain History of Present Illness: Ms. Frank Doran is a 33y/o female with non-IDDM who presents with abdominal pain , diarrhea, and vomiting. Pt began with painless, yellowish diarrhea (x7) yesterday around 3pm for which she took 2 imodium, intermittent twisting/ squeezing abdominal pain at 6pm, and nbnb vomiting (x3) around 7pm. After work at 10pm, she presented to ED. She has not had vomiting since presentation and has had one episode of diarrhea following PO liquid intake this afternoon. Abdominal pain is intermittent (lasting 15 seconds), squeezing/twisting, and is 10/10 but better controlled with medication. She also has midline lumbar pain that radiates laterally. No CVA tendernes. She denies history of abdominal surgery. She had chills yesterday but none currently. She denies fever, myalgias, dysuria , hematuria, frequency, or urgency. Last UTI was during her 4 years ago. Pt reports new onset yellowish vaginal discharge that began this morning. Pt was last sexually active 2 months ago. Pt reports using condoms all the time. No history of STI or PID. She had an IUD placed, and LMP was in May this year. Pt reports her daughter noticed a rash on her left arm 2 days ago. It is not pruritic or painful. No recent travel. Pt's daughter has URI currently. - History Source History Provided By: Patient Limitations to Obtaining History: No Limitations - Past Medical History Endocrine: Yes: Diabetes Mellitus - Alcohol/Substance Use Hx Alcohol Use: No - Smoking History Smoking history: Never smoked Have you smoked in the past 12 months: No Aproximately how many cigarettes per day: 0 - Social History ADL: Independent History of Recent Travel: No Home Medications - Allergies Allergies/Adverse Reactions: Allergies Allergy/AdvReac Type Severity Reaction Status Date / Time ondansetron Allergy Verified 01/27/19 22:53 - Home Medications Home Medications: Ambulatory Orders Glyburide/Metformin HCl [Glyburide-Metformin 2.5-500 mg] 1 each PO BID 08/30/15 Losartan Potassium 50 mg PO DAILY 08/30/15 Metoclopramide HCl [Reglan] 10 mg PO BID PRN #10 tablet 08/30/15 Review of Systems - Review of Systems Constitutional: reports: Chills. denies: Fever Cardiovascular: denies: Chest Pain Gastrointestinal: reports: Abdominal Pain, Diarrhea, Nausea, Vomiting Genitourinary: denies: Dysuria, Frequency, Hematuria, Urgency Musculoskeletal: reports: Back Pain Integumentary: reports: Rash Neurological: denies: Headache Physical Exam Vital Signs: Vital Signs Temperature 98.0 F 01/28/19 06:30 Pulse Rate 84 01/28/19 06:30 Respiratory Rate 18 01/28/19 06:30 Blood Pressure 134/88 01/28/19 06:30 O2 Sat by Pulse Oximetry (%) 98 01/28/19 13:58 Constitutional: Yes: Well Nourished, No Distress Eyes: Yes: Conjunctiva Clear, EOM Intact HENT: Yes: Atraumatic, Normocephalic Neck: Yes: Supple, Trachea Midline Cardiovascular: Yes: Regular Rate and Rhythm. No: Murmur Respiratory: Yes: CTA Bilaterally Gastrointestinal: Yes: Normal Bowel Sounds, Tenderness (generalized). No: Tenderness, Rebound Integumentary: Yes: Rash (annular, erythematous, scaly rash on bilateral medial upper arms and lateral aspect of back, 2 lesions along waistband) Neurological: Yes: Alert, Oriented Labs: CBC, BMP 01/28/19 02:25 01/28/19 02:25 Imaging - Results EKG: Report Reviewed (NSR, HR 73, QTc 412), Image Reviewed Assessment/Plan Ms. rFank Doran is a 33y/o female with non-IDDM who presents with abdominal pain , vomiting, and diarrhea that began yesterday. She has an annular, scaly rash that began 2 days ago. Pt does not have urinary symptoms. #viral gastroenteritis -continue IV and PO fluids -if pt has diarrhea again, collect for stool white cells, cx, and c diff #rash, likely fungal -Lotrimin BID to affected areas #asymptomatic bacteriuria -treatment not needed at this time as pt is asymptomatic -urine cx pending
--- NOTE | 2019-01-28 16:47 | PN ---
Teaching Attending Note Name of Resident: Louise Muro ATTENDING PHYSICIAN STATEMENT I saw and evaluated the patient. I reviewed the resident's note and discussed the case with the resident. I agree with the resident's findings and plan as documented. SUBJECTIVE: 33 yo female admitted with abdominal pain she had 4 episodes of yellow diarrhea yesterday with vomiting and then took immodium no fevers rash behind left upper arm- scaly-noted 2 days ago no dysuria OBJECTIVE: Vital Signs Period Temp Pulse Resp BP Sys/Jung Pulse Ox Last 24 Hr 98.0 F-99.0 F 84-95 18-18 134-165/87-88 98-100 cor-rrr lungs clear abd soft,mild midepigastric tenderness to palpation ext no edema CBC, BMP 01/28/19 02:25 01/28/19 02:25 ASSESSMENT AND PLAN: suspect gastroenteritis-continue IVF got rocephin 1 gram in ED would send stools if she has futrher diarrhea continue iv hydration vomiting as resolved suspect leukocytosis is partially hemoconcentration as hgb and hct are elevated as well Problem List - Problems (1) Gastroenteritis Code(s): K52.9 - NONINFECTIVE GASTROENTERITIS AND COLITIS, UNSPECIFIED (2) Leukocytosis Code(s): D72.829 - ELEVATED WHITE BLOOD CELL COUNT, UNSPECIFIED
[2019-01-28] MEDS: SODIUM CHLORIDE 1,000 ML IV SCH (17:41)
[2019-01-28 18:14] VITALS: BMI 32.8
[2019-01-28] MEDS ORDERED: PNEUMOC 13-VAL CONJ-DIP CRM/PF 0.5 ML DISP.SYRIN IM ONE (18:14)
[2019-01-28] MEDS ORDERED: FLU VACCINE QUAD 60 MCG/0.5 ML (MDV 19-20) IM ONE (18:14)
[2019-01-28] MEDS ORDERED: PNEUMOCOCCAL 23 VACCINE 0.5 ML VIAL IM ONE (18:45)
--- NOTE | 2019-01-28 20:11 | CONSULT ---
Consult Consult Specialty:: endocrine Referred by:: janet quiroz Reason for Consultation:: dmt2 - History of Present Illness Chief Complaint: abdominal pain History of Present Illness: 33 y/o female with past medical history of DM T2. Patient admitted with epigastric pain radiating to mid abdomen the Epigastric pain was accompanied with nausea, vomiting, non-bloody diarrhea. She was unable to keep food down, denies fever or chills.has only taken metformin in past.denies weight gain, polyuria or polydipsia - Past Medical History ...LMP: 05/26/18 ...LMP Comment: IUD ...: No Endocrine: Yes: Diabetes Mellitus - Past Surgical History Past Surgical History: Yes: - Alcohol/Substance Use Hx Alcohol Use: No - Smoking History Smoking history: Never smoked Have you smoked in the past 12 months: No Aproximately how many cigarettes per day: 0 - Social History ADL: Independent History of Recent Travel: No Home Medications - Allergies Allergies/Adverse Reactions: Allergies Allergy/AdvReac Type Severity Reaction Status Date / Time ondansetron Allergy Verified 01/27/19 22:53 - Home Medications Home Medications: Ambulatory Orders Glyburide/Metformin HCl [Glyburide-Metformin 2.5-500 mg] 1 each PO BID 08/30/15 Losartan Potassium 50 mg PO DAILY 08/30/15 Metoclopramide HCl [Reglan] 10 mg PO BID PRN #10 tablet 08/30/15 Review of Systems - Review of Systems Constitutional: reports: Loss of Appetite Eyes: reports: No Symptoms HENT: reports: No Symptoms Neck: reports: No Symptoms Cardiovascular: reports: No Symptoms Respiratory: reports: No Symptoms Gastrointestinal: reports: Bloating, Nausea Genitourinary: reports: No Symptoms Musculoskeletal: reports: No Symptoms Integumentary: reports: No Symptoms Neurological: reports: No Symptoms Physical Exam Vital Signs: Vital Signs Temperature 97.9 F 01/28/19 18:00 Pulse Rate 82 01/28/19 18:00 Respiratory Rate 18 01/28/19 18:00 Blood Pressure 153/84 01/28/19 18:00 O2 Sat by Pulse Oximetry (%) 98 01/28/19 14:30 Constitutional: Yes: Anxious Eyes: Yes: EOM Intact HENT: Yes: Normocephalic Neck: Yes: Trachea Midline Cardiovascular: Yes: Regular Rate and Rhythm Respiratory: Yes: CTA Bilaterally Gastrointestinal: Yes: Hypoactive Bowel Sounds ...Rectal Exam: Yes: Deferred Renal/: Yes: WNL Musculoskeletal: Yes: WNL Extremities: Yes: WNL Integumentary: Yes: WNL Neurological: Yes: Alert, Oriented Labs: CBC, BMP 01/28/19 02:25 01/28/19 02:25 Problem List - Problems (1) Abdominal pain Problems reviewed: Yes Code(s): R10.9 - UNSPECIFIED ABDOMINAL PAIN (2) Diabetes Problems reviewed: Yes Code(s): E11.9 - TYPE 2 DIABETES MELLITUS WITHOUT COMPLICATIONS (3) Leukocytosis Problems reviewed: Yes Code(s): D72.829 - ELEVATED WHITE BLOOD CELL COUNT, UNSPECIFIED (4) Urinary tract infection Problems reviewed: Yes Code(s): N39.0 - URINARY TRACT INFECTION, SITE NOT SPECIFIED (5) Vomiting Code(s): R11.10 - VOMITING, UNSPECIFIED (6) Gastroenteritis Code(s): K52.9 - NONINFECTIVE GASTROENTERITIS AND COLITIS, UNSPECIFIED Assessment/Plan Current Active Problems Abdominal pain (Acute) Diabetes (Acute) Leukocytosis (Acute) Urinary tract infection (Acute) Vomiting (Acute) Abnormal Lab Results 01/28/19 01/28/19 01/28/19 02:25 02:25 02:25 WBC 14.3 H RBC 5.68 H Hgb 16.3 H Hct 47.9 H Absolute Neuts (auto) 10.4 H Sodium 135 L Creatinine 0.5 L Random Glucose 310 H AST 13 L Lipase 65 L Ur Specific [place] Urine Protein 01/28/19 07:35 WBC RBC Hgb Hct Absolute Neuts (auto) Sodium Creatinine Random Glucose AST Lipase Ur Specific [place] 1.05 H Urine Protein 2+ H Laboratory Results - last 24 hr 01/28/19 01/28/19 01/28/19 02:25 02:25 02:25 WBC 14.3 H RBC 5.68 H Hgb 16.3 H Hct 47.9 H MCV 84.4 MCH 28.7 MCHC 34.0 RDW 13.7 Plt Count 393 MPV 8.8 Absolute Neuts (auto) 10.4 H Neutrophils % 72.7 Lymphocytes % 20.9 Monocytes % 4.6 Eosinophils % 0.6 Basophils % 1.2 Nucleated RBC % 0 Sodium 135 L Potassium 3.9 Chloride 101 Carbon Dioxide 26 Anion Gap 8 BUN 9.7 Creatinine 0.5 L Est GFR (CKD-EPI)AfAm 145.33 Est GFR (CKD-EPI)NonAf 125.39 POC Glucometer Random Glucose 310 H Calcium 9.0 Total Bilirubin 0.6 AST 13 L ALT 26 Alkaline Phosphatase 99 Total Protein 7.0 Albumin 3.7 Lipase 65 L Serum , Qual Urine Color Urine Appearance Urine pH Ur Specific [place] Urine Protein Urine Glucose (UA) Urine Ketones Urine Blood Urine Nitrite Urine Bilirubin Urine Urobilinogen Ur Leukocyte Esterase Urine WBC (Auto) Urine RBC (Auto) Urine Casts (Auto) U Epithel Cells (Auto) Urine Bacteria (Auto) 01/28/19 01/28/19 01/28/19 02:25 07:35 12:27 WBC RBC Hgb Hct MCV MCH MCHC RDW Plt Count MPV Absolute Neuts (auto) Neutrophils % Lymphocytes % Monocytes % Eosinophils % Basophils % Nucleated RBC % Sodium Potassium Chloride Carbon Dioxide Anion Gap BUN Creatinine Est GFR (CKD-EPI)AfAm Est GFR (CKD-EPI)NonAf POC Glucometer 263 Random Glucose Calcium Total Bilirubin AST ALT Alkaline Phosphatase Total Protein Albumin Lipase Serum , Qual Negative Urine Color Yellow Urine Appearance Clear Urine pH 5.0 Ur Specific [place] 1.05 H Urine Protein 2+ H Urine Glucose (UA) Large Urine Ketones 40 mg/dl Urine Blood Trace Urine Nitrite Negative Urine Bilirubin Negative Urine Urobilinogen 0.2 Ur Leukocyte Esterase Negative Urine WBC (Auto) 109.8 Urine RBC (Auto) 6.1 Urine Casts (Auto) 0.35 U Epithel Cells (Auto) 0.4 Urine Bacteria (Auto) 679.8 01/28/19 17:31 WBC RBC Hgb Hct MCV MCH MCHC RDW Plt Count MPV Absolute Neuts (auto) Neutrophils % Lymphocytes % Monocytes % Eosinophils % Basophils % Nucleated RBC % Sodium Potassium Chloride Carbon Dioxide Anion Gap BUN Creatinine Est GFR (CKD-EPI)AfAm Est GFR (CKD-EPI)NonAf POC Glucometer 266 Random Glucose Calcium Total Bilirubin AST ALT Alkaline Phosphatase Total Protein Albumin Lipase Serum , Qual Urine Color Urine Appearance Urine pH Ur Specific [place] Urine Protein Urine Glucose (UA) Urine Ketones Urine Blood Urine Nitrite Urine Bilirubin Urine Urobilinogen Ur Leukocyte Esterase Urine WBC (Auto) Urine RBC (Auto) Urine Casts (Auto) U Epithel Cells (Auto) Urine Bacteria (Auto) plan: bgm qid ac coverage hba1c iv fluid dc metformin pain medication
[2019-01-28] MEDS ORDERED: HYDROmorphone HCl 2 MG/ML VIAL IVPB ONE (20:12)
[2019-01-28] MEDS ORDERED: ACETAMINOPHEN 325 MG TABLET (FP) PO PRN (22:18)
[2019-01-28] MEDS: HEPARIN NA (PORCINE) 5,000 UNITS/ML 1ML VIAL SQ SCH (23:06)
[2019-01-29] MEDS: CLOTRIMAZOLE 1% CREAM 15 GM TUBE TP SCH ×3 (00:30→21:49)
[2019-01-29] MEDS: SODIUM CHLORIDE 1,000 ML IV SCH ×2 (04:18→18:25)
[2019-01-29] MEDS: INSULIN SLIDING SCALE (NOVOLOG) 1 VIAL SQ SCH ×4 (06:44→21:51)
[2019-01-29 08:39] LABS: BASO % 0.4 % (0-2.0); EOS % 2.5 % (0-4.5); HEMATOCRIT 41.6 % (32.4-45.2); HEMOGLOBIN 14.1 GM/dL (10.7-15.3); LYMPH % 20.9 % (8-40); MCH 28.7 pg (25.7-33.7); MCHC 33.9 g/dl (32.0-36.0); MEAN CELL VOLUME 84.9 fl (80-96); MEAN PLT VOLUME 8.6 fl (7.5-11.1); NEUT % 70.2 % (42.8-82.8); PLATELET COUNT 344 K/MM3 (134-434); RDW 13.4 % (11.6-15.6); WHITE BLOOD COUNT 9.8 K/mm3 (4.0-10.0)
[2019-01-29 09:19] LABS: ALBUMIN 2.8 g/dl (3.4-5.0); BILIRUBIN,TOTAL 0.7 mg/dL (0.2-1); BLOOD UREA NITROGEN 8.8 mg/dL (7-18); CREATININE 0.3 mg/dL (0.55-1.3); MAGNESIUM 1.9 mg/dL (1.8-2.4); PHOSPHOROUS 2.8 mg/dL (2.5-4.9); POTASSIUM 3.4 mmol/L (3.5-5.1); TOT PROT 5.2 g/dl (6.4-8.2)
[2019-01-29] MEDS ORDERED: PANTOPRAZOLE 40 MG TABLET (FP) PO SCH (10:00)
--- NOTE | 2019-01-29 10:34 | PN ---
Progress Note, Physician Chief Complaint: Diarrhea DM Abdominal Pain History of Present Illness: Previous notes and events reviewed awake and alert NAD sts abdominal pain is improving but continues with diarrhea stool analysis pending - Current Medication List Current Medications: Active Medications Acetaminophen (Tylenol -) 650 mg PO Q4H PRN PRN Reason: pain or fever>100.0F Last Admin: 01/29/19 04:13 Dose: 650 mg Clotrimazole (Lotrimin 1% Cream -) 1 applic TP BID [facility] Last Admin: 01/29/19 00:30 Dose: 1 applic Heparin Sodium (Porcine) (Heparin -) 5,000 unit SQ BID [facility] Last Admin: 01/28/19 23:06 Dose: 5,000 unit Sodium Chloride (Normal Saline -) 1,000 mls @ 100 mls/hr IV ASDIR [facility] Last Admin: 01/29/19 04:18 Dose: 100 mls/hr Insulin Aspart (Novolog Vial Sliding Scale -) 1 vial SQ [facility]; Protocol Last Admin: 01/29/19 06:44 Dose: 2 units Losartan Potassium (Cozaar -) 50 mg PO DAILY [facility] Metoclopramide HCl (Reglan Injection -) 10 mg IVPB Q8H PRN PRN Reason: NAUSEA AND/OR VOMITING Pantoprazole Sodium (Protonix -) 40 mg PO DAILY [facility] - Objective Vital Signs: Vital Signs Temperature 98.0 F 01/29/19 05:00 Pulse Rate 86 01/29/19 05:00 Respiratory Rate 18 01/29/19 05:00 Blood Pressure 150/84 01/29/19 05:00 O2 Sat by Pulse Oximetry (%) 98 01/28/19 21:00 Constitutional: Yes: No Distress, Calm Eyes: Yes: Conjunctiva Clear HENT: Yes: Atraumatic Cardiovascular: Yes: Regular Rate and Rhythm Respiratory: Yes: Regular, CTA Bilaterally Gastrointestinal: Yes: Normal Bowel Sounds, Soft, Tenderness (lower abdomen) Musculoskeletal: Yes: WNL Extremities: Yes: WNL Edema: No Neurological: Yes: Alert, Oriented Psychiatric: Yes: Alert, Oriented Labs: CBC, BMP 01/29/19 07:22 01/29/19 07:22 Problem List - Problems (1) Abdominal pain Assessment/Plan: -GI consult -CTAP shows hepatomegaly with fatty infiltration, no gross gallstones, fluid- filled slightly dilated distal small bowel loops with mild enhancement/ hyperemia of its wall, suggestive of inflammatory vs infectious process, fluid stool present in cecum and proximal ascending colon without gross wall thickening, small amount of free fluid in the left side of the pelvis in the RLQ , bilateral ovarian simple cysts in left ovary -Pantoprazole -Reglan -Abd US shows hepatomegaly with fatty infiltration vs hepatocellular disease -clear liquid diet -Stool Analysis pending Code(s): R10.9 - UNSPECIFIED ABDOMINAL PAIN (2) Urinary tract infection Assessment/Plan: -UC neg -ID on board -no leukocytosis -afebrile Code(s): N39.0 - URINARY TRACT INFECTION, SITE NOT SPECIFIED (3) Nausea & vomiting Assessment/Plan: -GI consult -CTAP shows hepatomegaly with fatty infiltration, no gross gallstones, fluid- filled slightly dilated distal small bowel loops with mild enhancement/ hyperemia of its wall, suggestive of inflammatory vs infectious process, fluid stool present in cecum and proximal ascending colon without gross wall thickening, small amount of free fluid in the left side of the pelvis in the RLQ , bilateral ovarian simple cysts in left ovary -Pantoprazole -Reglan -Abd US shows hepatomegaly with fatty infiltration vs hepatocellular disease -clear liquid Code(s): R11.2 - NAUSEA WITH VOMITING, UNSPECIFIED Qualifiers: Vomiting type: unspecified Vomiting Intractability: non-intractable Qualified Code(s): R11.2 - Nausea with vomiting, unspecified (4) Diabetes Assessment/Plan: -[facility] ACHS -ISS -HgA1c 13.3% -Metformin d/c -Endocrinology on board Code(s): E11.9 - TYPE 2 DIABETES MELLITUS WITHOUT COMPLICATIONS Assessment/Plan see problem list dvt ppx
[2019-01-29] MEDS ORDERED: PT OWN MED DRAWER 7, Y5N ONE (10:35)
[2019-01-29] MEDS: HEPARIN NA (PORCINE) 5,000 UNITS/ML 1ML VIAL SQ SCH ×2 (10:52→21:51)
[2019-01-29] MEDS: LOSARTAN POTASSIUM 50 MG TABLET (FP) PO SCH (10:52)
[2019-01-29] MEDS ORDERED: INSULIN (NOVOLOG) ASPART 100 UNITS/ML 10ML VIAL ONE (12:13)
[2019-01-29] MEDS ORDERED: SODIUM CHLORIDE 500 ML IV STA (13:08)
--- NOTE | 2019-01-29 13:13 | RAPID ---
Physical Examination Vital Signs: Vital Signs Temperature 98.2 F 01/29/19 10:00 Pulse Rate 83 01/29/19 10:00 Respiratory Rate 18 01/29/19 10:00 Blood Pressure 138/75 01/29/19 10:00 O2 Sat by Pulse Oximetry (%) 99 01/29/19 09:00 BP: 99/58 HR: 113 SpO2: 97% Findings/Remarks: Rapid was called at 1:04 PM. Patient was observed to be cold, and sweating and getting hypotensive and complaining of pain in the upper epigastric area. Blood pressure was observed to be 99/58. HR was 113. SpO2 was 97%. Patient was given 500 mL bolus of NS and patient's repeat Vitals were BP 105/60, HR 108, Sp02: 96% . BMP, Chest X-Ray and Lactic acid were ordered. Patient was feeling better and calm, and rapid was resolved. Labs: CBC, BMP 01/29/19 07:22 01/29/19 07:22
[2019-01-29] MEDS ORDERED: SODIUM CHLORIDE 1,000 ML IV SCH (13:15)
--- NOTE | 2019-01-29 13:22 | PN ---
Progress Note, Physician Chief Complaint: rapid respomnse called for vomitting and patient feleing light headed and sweaty after loose BM complaining of abdominal pain vitals oxygen 90% BP106/65 hr 109 - Current Medication List Current Medications: Active Medications Acetaminophen (Tylenol -) 650 mg PO Q4H PRN PRN Reason: pain or fever>100.0F Last Admin: 01/29/19 04:13 Dose: 650 mg Clotrimazole (Lotrimin 1% Cream -) 1 applic TP BID [facility] Last Admin: 01/29/19 10:53 Dose: 1 applic Heparin Sodium (Porcine) (Heparin -) 5,000 unit SQ BID VAL Last Admin: 01/29/19 10:52 Dose: 5,000 unit Sodium Chloride (Normal Saline -) 1,000 mls @ 100 mls/hr IV ASDIR VAL Last Admin: 01/29/19 04:18 Dose: 100 mls/hr Sodium Chloride (Normal Saline -) 500 mls @ 500 mls/hr IV ASDIR STA Stop: 01/29/19 14:07 Potassium Chloride 10 meq/ (Sodium Chloride) 1,005 mls @ 83 mls/hr IVPB ASDIR VAL Insulin Aspart (Novolog Vial Sliding Scale -) 1 vial SQ ACHS [facility]; Protocol Last Admin: 01/29/19 12:15 Dose: 2 units Losartan Potassium (Cozaar -) 50 mg PO DAILY [facility] Last Admin: 01/29/19 10:52 Dose: 50 mg Metoclopramide HCl (Reglan Injection -) 10 mg IVPB Q8H PRN PRN Reason: NAUSEA AND/OR VOMITING Last Admin: 01/29/19 12:58 Dose: 10 mg Pantoprazole Sodium (Protonix -) 40 mg PO DAILY [facility] Last Admin: 01/29/19 10:52 Dose: 40 mg Pantoprazole Sodium (Protonix Iv) 40 mg IVPUSH DAILY [facility] - Objective Vital Signs: Vital Signs Temperature 98.2 F 01/29/19 10:00 Pulse Rate 83 01/29/19 10:00 Respiratory Rate 18 01/29/19 10:00 Blood Pressure 138/75 01/29/19 10:00 O2 Sat by Pulse Oximetry (%) 99 01/29/19 09:00 Constitutional: Yes: Mild Distress Cardiovascular: Yes: Regular Rate and Rhythm, Tachycardia, S1, S2 Respiratory: Yes: CTA Bilaterally Gastrointestinal: Yes: Tenderness, Epigastrium Extremities: Yes: Other (DP palpable) Edema: No Labs: CBC, BMP 01/29/19 07:22 01/29/19 07:22 Problem List - Problems (1) Abdominal pain Assessment/Plan: possibly gastroenteritis vs peptic ulcer/ gastroeresis ivf NS bolus followed by NS with potassium antiemetic- reglan PPI iv send stool cultures GI eval check labs and ekg Code(s): R10.9 - UNSPECIFIED ABDOMINAL PAIN (2) Diabetes Assessment/Plan: [id number] noted emdocrine eval Code(s): E11.9 - TYPE 2 DIABETES MELLITUS WITHOUT COMPLICATIONS Qualifiers: Diabetes mellitus type: type 2 (3) Leukocytosis Assessment/Plan: resolved Code(s): D72.829 - ELEVATED WHITE BLOOD CELL COUNT, UNSPECIFIED
[2019-01-29] MEDS ORDERED: SODIUM CHLORIDE 1,000 ML with POTASSIUM CHLORIDE 10 MEQ IVPB SCH (13:45)
[2019-01-29 14:21] LABS: AMYLASE 24 U/L (25-115); ANION GAP 8 MMOL/L (8-16); BLOOD UREA NITROGEN 6.6 mg/dL (7-18); CALCIUM 8.6 mg/dL (8.5-10.1); CHLORIDE 107 mmol/L (98-107); CO2 24 mmol/L (21-32); CREATININE 0.4 mg/dL (0.55-1.3); GLUCOSE,RANDOM 323 mg/dL (74-106); LIPASE 54 U/L (73-393); POTASSIUM 3.4 mmol/L (3.5-5.1); SODIUM 139 mmol/L (136-145)
--- NOTE | 2019-01-29 14:46 | EKG ---
Test Reason : Blood Pressure : / mmHG Vent. Rate : 083 BPM Atrial Rate : 083 BPM P-R Int : 190 ms QRS Dur : 084 ms QT Int : 386 ms P-R-T Axes : 044 023 030 degrees QTc Int : 453 ms NORMAL SINUS RHYTHM ANTERIOR INFARCT (CITED ON OR BEFORE 02-APR-2017) ABNORMAL ECG WHEN COMPARED WITH ECG OF 02-APR-2017 15:47, NO SIGNIFICANT CHANGE WAS FOUND Confirmed by MIGUELITO REBOLLAR, ED ([id number]) on 01/29/2019 2:45:53 PM Referred By: Confirmed By:ED FARLEY MD
--- NOTE | 2019-01-29 14:47 | EKG ---
Test Reason : Blood Pressure : / mmHG Vent. Rate : 104 BPM Atrial Rate : 104 BPM P-R Int : 178 ms QRS Dur : 090 ms QT Int : 382 ms P-R-T Axes : 054 056 037 degrees QTc Int : 502 ms SINUS TACHYCARDIA ANTERIOR INFARCT (CITED ON OR BEFORE 02-APR-2017) ABNORMAL ECG WHEN COMPARED WITH ECG OF 28-JAN-2019 02:04, QT HAS LENGTHENED Confirmed by MIGUELITO REBOLLAR, ED ([id number]) on 01/29/2019 2:46:40 PM Referred By: Confirmed By:ED FARLEY MD
[2019-01-29] MEDS ORDERED: POTASSIUM CHLORIDE TABS 20 MEQ TABLET.ER (FP) PO ONE (15:56)
--- NOTE | 2019-01-29 17:44 | PN ---
Progress Note (short form) - Note Progress Note: 3 loose green stools episode vomiting with lightheadedness- rapid response today no fevers less abdominal cramping Vital Signs Period Temp Pulse Resp BP Sys/Jung Pulse Ox Last 24 Hr 97.3 F-98.9 F 82-88 18-18 138-153/75-84 98-99 cor-rrr lungs clear abd soft, +midepigastric tenderness to palpation ext no edema CBC, BMP 01/29/19 07:22 01/29/19 13:30 Microbiology 01/28/19 19:00 Stool Gram Stain - Final 01/28/19 19:00 Stool Clostridioides difficile Antigen - Final 01/28/19 19:00 Stool Clostridioides difficile Toxin Assay - Final 01/28/19 07:35 Urine - Urine Clean Catch Urine Culture - Preliminary a/p resolving gastroenteritis continue ivf f/u stool studies in am Problem List - Problems (1) Gastroenteritis Code(s): K52.9 - NONINFECTIVE GASTROENTERITIS AND COLITIS, UNSPECIFIED (2) Leukocytosis Code(s): D72.829 - ELEVATED WHITE BLOOD CELL COUNT, UNSPECIFIED
[2019-01-29] MEDS: PANTOPRAZOLE SODIUM 40 MG VIAL IVPUSH SCH (17:58)
[2019-01-29] MEDS ORDERED: PIPERACILLIN/TAZOB 3.375 GM 3.375 GM in DEXTROSE 5%-WATER - 50 ML IVPB SCH (18:00)
--- NOTE | 2019-01-29 18:04 | PN ---
Progress Note, Physician History of Present Illness: Ms. Frank Doran is a 33y/o female with non-IDDM who presents with abdominal pain , diarrhea, and vomiting. Pt began with painless, yellowish diarrhea (x7) yesterday around 3pm for which she took 2 imodium, intermittent twisting/ squeezing abdominal pain at 6pm, and nbnb vomiting (x3) around 7pm. After work at 10pm, she presented to ED. She has not had vomiting since presentation and has had one episode of diarrhea following PO liquid intake this afternoon. Abdominal pain is intermittent (lasting 15 seconds), squeezing/twisting, and is 10/10 but better controlled with medication. She also has midline lumbar pain that radiates laterally. No CVA tendernes. She denies history of abdominal surgery. She had chills yesterday but none currently. She denies fever, myalgias, dysuria , hematuria, frequency, or urgency. Last UTI was during her 4 years ago. Pt reports new onset yellowish vaginal discharge that began this morning. Pt was last sexually active 2 months ago. Pt reports using condoms all the time. No history of STI or PID. She had an IUD placed, and LMP was in May this year. Pt reports her daughter noticed a rash on her left arm 2 days ago. It is not pruritic or painful. No recent travel. Pt's daughter has URI currently. - Current Medication List Current Medications: Active Medications Acetaminophen (Tylenol -) 650 mg PO Q4H PRN PRN Reason: pain or fever>100.0F Last Admin: 01/29/19 04:13 Dose: 650 mg Clotrimazole (Lotrimin 1% Cream -) 1 applic TP BID [facility] Last Admin: 01/29/19 10:53 Dose: 1 applic Diphenhydramine HCl (Benadryl Injection -) 12.5 mg IVPUSH Q4H PRN PRN Reason: FOR ITCHING Last Admin: 01/29/19 13:50 Dose: 12.5 mg Heparin Sodium (Porcine) (Heparin -) 5,000 unit SQ BID [facility] Last Admin: 01/29/19 10:52 Dose: 5,000 unit Sodium Chloride (Normal Saline -) 1,000 mls @ 100 mls/hr IV ASDIR [facility] Last Admin: 01/29/19 04:18 Dose: 100 mls/hr Piperacillin Sod/Tazobactam (Sod 3.375 gm/ Dextrose) 50 mls @ 100 mls/hr IVPB Q8H-IV [facility]; Protocol Stop: 01/30/19 10:29 Potassium Chloride 10 meq/ (Sodium Chloride) 1,005 mls @ 83 mls/hr IVPB ASDIR VAL Insulin Aspart (Novolog Vial Sliding Scale -) 1 vial SQ ACHS [facility]; Protocol Last Admin: 01/29/19 12:15 Dose: 2 units Losartan Potassium (Cozaar -) 50 mg PO DAILY [facility] Last Admin: 01/29/19 10:52 Dose: 50 mg Metoclopramide HCl (Reglan Injection -) 10 mg IVPB Q8H PRN PRN Reason: NAUSEA AND/OR VOMITING Last Admin: 01/29/19 12:58 Dose: 10 mg Pantoprazole Sodium (Protonix Iv) 40 mg IVPUSH DAILY [facility] - Objective Vital Signs: Vital Signs Temperature 97.3 F L 01/29/19 14:00 Pulse Rate 88 01/29/19 14:00 Respiratory Rate 18 01/29/19 14:00 Blood Pressure 142/76 01/29/19 14:00 O2 Sat by Pulse Oximetry (%) 99 01/29/19 09:00 Constitutional: Yes: Well Nourished, No Distress Eyes: Yes: Conjunctiva Clear, EOM Intact HENT: Yes: Atraumatic, Normocephalic Neck: Yes: Supple, Trachea Midline Cardiovascular: Yes: Regular Rate and Rhythm. No: Murmur Respiratory: Yes: CTA Bilaterally Gastrointestinal: Yes: Normal Bowel Sounds, Soft, Abdomen, Obese, Tenderness ( deep palpation) Integumentary: Yes: Rash (erythematous and scaly annular rash at b/l inner arms and back) Neurological: Yes: Alert, Oriented Labs: CBC, BMP 01/29/19 07:22 01/29/19 13:30 Impression/Plan Impression/Plan: Ms. Frank Doran is a 33y/o female with non-IDDM who presents with abdominal pain , vomiting, and diarrhea. #viral gastroenteritis -continue IV and PO fluids -stool cultures negative #rash, likely fungal -Lotrimin BID to affected areas #asymptomatic bacteriuria -treatment not needed at this time as pt is asymptomatic -urine cx pending Visit type - Emergency Visit Emergency Visit: Yes ED Registration Date: 01/28/19 Care time: The patient presented to the Emergency Department on the above date and was hospitalized for further evaluation of their emergent condition. - New Patient This patient is new to me today: No - Critical Care Critical Care patient: No - Discharge Referral Referred to [facility] Med P.C.: No ATTENDING PHYSICIAN STATEMENT I saw and evaluated the patient. I reviewed the resident's note and discussed the case with the resident. I agree with the resident's findings and plan as documented. SUBJECTIVE: OBJECTIVE: ASSESSMENT AND PLAN:
[2019-01-29] MEDS: POTASSIUM CHLORIDE 10 MEQ in SODIUM CHLORIDE 1,000 ML IVPB SCH (18:13)
[2019-01-29] MEDS ORDERED: DEXTROSE 5%-WATER - 50 ML IVPB ONE (18:20)
[2019-01-29] MEDS ORDERED: PIPERACILLIN/TAZOBACTAM 3.375 GM VIAL IVPB ONE (18:20)
[2019-01-29] MEDS: PIPERACILLIN/TAZOB 3.375 GM 3.375 GM in DEXTROSE 5%-WATER - 50 ML IVPB SCH (18:27)
[2019-01-30] MEDS ORDERED: DEXTROSE 5%-WATER - 50 ML IVPB ONE ×2 (02:51→10:31)
[2019-01-30] MEDS ORDERED: PIPERACILLIN/TAZOBACTAM 3.375 GM VIAL IVPB ONE ×2 (02:51→10:30)
[2019-01-30] MEDS: PIPERACILLIN/TAZOB 3.375 GM 3.375 GM in DEXTROSE 5%-WATER - 50 ML IVPB SCH ×2 (02:58→10:53)
[2019-01-30] MEDS: INSULIN SLIDING SCALE (NOVOLOG) 1 VIAL SQ SCH ×2 (06:53→12:18)
[2019-01-30] MEDS: POTASSIUM CHLORIDE 10 MEQ in SODIUM CHLORIDE 1,000 ML IVPB SCH (06:53)
[2019-01-30 08:19] LABS: ALBUMIN 2.8 g/dl (3.4-5.0); BILIRUBIN,TOTAL 0.6 mg/dL (0.2-1); BLOOD UREA NITROGEN 6.4 mg/dL (7-18); CALCIUM 7.8 mg/dL (8.5-10.1); CREATININE 0.3 mg/dL (0.55-1.3); POTASSIUM 3.4 mmol/L (3.5-5.1)
[2019-01-30] MEDS: HEPARIN NA (PORCINE) 5,000 UNITS/ML 1ML VIAL SQ SCH (10:50)
[2019-01-30] MEDS: LOSARTAN POTASSIUM 50 MG TABLET (FP) PO SCH (10:50)
[2019-01-30] MEDS: PANTOPRAZOLE SODIUM 40 MG VIAL IVPUSH SCH (10:50)
[2019-01-30] MEDS: CLOTRIMAZOLE 1% CREAM 15 GM TUBE TP SCH (10:53)
[2019-01-30] MEDS ORDERED: POTASSIUM CHLORIDE 10 MEQ in SODIUM CHLORIDE 1,000 ML IVPB SCH (12:21)
--- NOTE | 2019-01-30 13:29 | DS ---
Physical Examination Vital Signs: Vital Signs Temperature 98.6 F 01/30/19 06:00 Pulse Rate 82 01/30/19 06:00 Respiratory Rate 20 01/30/19 06:00 Blood Pressure 136/64 01/30/19 06:00 O2 Sat by Pulse Oximetry (%) 98 01/29/19 21:00 Findings/Remarks: Laboratory Results - last 24 hr 01/29/19 01/29/19 01/29/19 13:30 13:30 15:35 Sodium 139 Potassium 3.4 L Chloride 107 Carbon Dioxide 24 Anion Gap 8 BUN 6.6 L Creatinine 0.4 L Est GFR (CKD-EPI)AfAm 156.40 Est GFR (CKD-EPI)NonAf 134.94 POC Glucometer Random Glucose 323 H Lactic Acid 2.0 Calcium 8.6 Magnesium Total Bilirubin AST ALT Alkaline Phosphatase Creatine Kinase 27 Troponin I < 0.02 Total Protein Albumin Total Amylase 24 L Lipase 54 L Serum , Qual Negative 01/29/19 01/29/19 01/30/19 18:01 21:29 06:42 Sodium 140 Potassium 3.4 L Chloride 109 H Carbon Dioxide 24 Anion Gap 7 L BUN 6.4 L Creatinine 0.3 L Est GFR (CKD-EPI)AfAm 171.92 Est GFR (CKD-EPI)NonAf 148.34 POC Glucometer 208 241 Random Glucose 202 H Lactic Acid Calcium 7.8 L Magnesium 2.0 Total Bilirubin 0.6 AST 7 L ALT 16 Alkaline Phosphatase 47 Creatine Kinase Troponin I Total Protein 5.0 L Albumin 2.8 L Total Amylase Lipase Serum , Qual 01/30/19 01/30/19 06:43 12:15 Sodium Potassium Chloride Carbon Dioxide Anion Gap BUN Creatinine Est GFR (CKD-EPI)AfAm Est GFR (CKD-EPI)NonAf POC Glucometer 208 218 Random Glucose Lactic Acid Calcium Magnesium Total Bilirubin AST ALT Alkaline Phosphatase Creatine Kinase Troponin I Total Protein Albumin Total Amylase Lipase Serum , Qual Active Medications Generic Name Dose Route Start Last Admin Trade Name Freq PRN Reason Stop Dose Admin Acetaminophen 650 mg 01/28/19 22:18 01/29/19 04:13 Tylenol - PO 650 mg Q4H PRN Administration pain or fever>100.0F Clotrimazole 1 applic 01/28/19 22:00 01/30/19 10:53 Lotrimin 1% Cream - TP 1 applic BID VAL Administration Diphenhydramine HCl 12.5 mg 01/29/19 13:35 01/29/19 13:50 Benadryl Injection - IVPUSH 12.5 mg Q4H PRN Administration FOR ITCHING Heparin Sodium (Porcine) 5,000 unit 01/28/19 22:00 01/30/19 10:50 Heparin - SQ 5,000 unit BID VAL Administration Potassium Chloride 10 meq/ 1,005 mls @ 83 mls/hr 01/30/19 12:21 Sodium Chloride IVPB Q12H VAL Insulin Aspart 1 vial 01/28/19 11:00 01/30/19 12:18 Novolog Vial Sliding Scale - SQ 2 units ACHS VAL Administration Protocol Losartan Potassium 50 mg 01/29/19 10:00 01/30/19 10:50 Cozaar - PO 50 mg DAILY [facility] Administration Metoclopramide HCl 10 mg 01/28/19 10:45 01/29/19 12:58 Reglan Injection - IVPB 10 mg Q8H PRN Administration NAUSEA AND/OR VOMITING Pantoprazole Sodium 40 mg 01/29/19 18:00 01/30/19 10:50 Protonix Iv IVPUSH 40 mg DAILY [facility] Administration Microbiology 01/28/19 19:00 Gram Stain - Final Stool Clostridioides difficile Antigen - Final Clostridioides difficile Toxin Assay - Final Salmonella/Shigella Culture - Preliminary NO ENTERIC PATHOGENS, 24 HOURS, ON PRIMARY PLATES Yersinia Culture - Preliminary NO ENTERIC PATHOGENS, 24 HOURS, ON PRIMARY PLATES Vibrio Culture - Final NO GROWTH OF VIBRIO SPECIES OBTAINED Escherichia coli 0157 Culture - Final NO GROWTH OF E COLI 0157 OBTAINED 01/28/19 07:35 Urine Culture - Final Urine - Urine Clean Catch Yeast Like Organism Normal Urogenital Martita Constitutional: Yes: No Distress, Calm Eyes: Yes: Conjunctiva Clear HENT: Yes: Atraumatic Neck: Yes: Supple Cardiovascular: Yes: Regular Rate and Rhythm Respiratory: Yes: Regular, CTA Bilaterally Gastrointestinal: Yes: Normal Bowel Sounds, Soft Musculoskeletal: Yes: WNL Extremities: Yes: WNL Edema: No Neurological: Yes: Alert, Oriented Psychiatric: Yes: Alert, Oriented Labs: CBC, BMP 01/29/19 07:22 01/30/19 06:42 Discharge Summary Problems reviewed: Yes Reason For Visit: UTI,DM,VOMITING Current Active Problems Abdominal pain (Acute) Diabetes (Acute) Leukocytosis (Acute) Urinary tract infection (Acute) Vomiting (Acute) Hospital Course: Patient is a 33 y/o female with past medical history of DM. Patient states developing sharp, intermittent epigastric pain radiating to mid abdomen yesterday at 5pm. Epigastric pain was accompanied with nausea, vomiting, non- bloody diarrhea. She was unable to keep food down, denies fever or chills. Received antibiotics in ER for Diarrhea and Possible UTI. UC negative. Stool collected and negative for c-diff. Stool Culture and Stool WBC both negative. Symtpoms have improved since admission, no leukocytosis and afebrile. Condition: Stable - Instructions Diet, Activity, Other Instructions: follow up with PMD in 1 week of discharge follow up with Dr Carl for management of Diabetes Mellitus low fiber/lactose free, diabetic diet follow up with GI Dr West return to ER if develop severe pain, respiratory distress, chest pain Referrals: Jonas West DO [Staff Physician] - Vlad Bhat MD [Primary Care Provider] - Jay Jay Carl MD [Staff Physician] - Disposition: HOME - Home Medications Comprehensive Discharge Medication List: Ambulatory Orders Glyburide/Metformin HCl [Glyburide-Metformin 2.5-500 mg] 1 each PO BID 08/30/15 Losartan Potassium 50 mg PO DAILY 08/30/15 Metoclopramide HCl [Reglan] 10 mg PO BID PRN #10 tablet 08/30/15 Clotrimazole [Lotrimin -] 1 applic TP BID #1 tube 01/30/19 Pantoprazole Sodium [Protonix -] 40 mg PO DAILY #30 tablet.ec 01/30/19 metFORMIN HCL [Glucophage -] 1,000 mg PO BID@0700,1630 tablet 01/30/19
[2019-01-30] MEDS ORDERED: POTASSIUM CHLORIDE TABS 20 MEQ TABLET.ER (FP) PO ONE (15:07)
[2019-01-30 15:57] VITALS: BP 147/87; PULSE 94; TEMP 99.4
[2019-01-30] MEDS ORDERED: PT OWN MED DRAWER 7, Y5N ONE (16:33)
== END 2019-01-30 16:44 | disposition home or self-care (01) | DRG 392 ==
LOC: JER 22:51 → SUPCPDRO 22:51 → JERBED 01-28 10:30 → J5S 01-28 15:04
PROVIDERS: ADMIT Family Medicine; ATTEND Family Medicine
DX: A08.39 Other viral enteritis (principal); N39.0 Urinary tract infection, site not specified; B48.8 Other specified mycoses; I10 Essential (primary) hypertension; E11.9 Type 2 diabetes mellitus without complications; R11.2 Nausea with vomiting, unspecified; R16.0 Hepatomegaly, not elsewhere classified; D72.829 Elevated white blood cell count, unspecified; R82.71 Bacteriuria
CPT/HCPCS: 36415; 71045-TC-FY; 74177-TC; 76705-TC; 80048; 80053; 81003; 82150; 82550; 82962; 83036; 83605; 83690; 83735; 84100; 84436; 84443; 84484; 84703; 85025; 87045; 87046; 87077; 87086; 87205; 87324; 87449; 90732; 93005; 93010; 99284-25; G0009; J1644; J7030; Q2036

== ENCOUNTER 2022-02-06 00:22 | Emergency (ER) | payer OTHER ==
[2022-02-06 00:44] VITALS: BP 191/113; PULSE 114; RESP 20; TEMP 99.1; BMI 32.8
[2022-02-06] MEDS ORDERED: ACETAMINOPHEN 500 MG TABLET (FP) PO ONE (01:34)
[2022-02-06] MEDS ORDERED: ACETAMINOPHEN 500 MG TABLET (FP) ONE (02:14)
[2022-02-06] MEDS ORDERED: morphine CARPU-JECT 4 MG/1 ML DISP.SYRIN IVPUSH ONE (03:05)
[2022-02-06] MEDS ORDERED: morphine CARPU-JECT 2 MG/1 ML DISP.SYRIN IM ONE (03:16)
[2022-02-06] MEDS ORDERED: morphine SULFATE 4 MG/ML VIAL ONE (03:17)
== END 2022-02-06 05:00 | disposition home or self-care (01) ==
LOC: JER 00:22
PROC: 3E023NZ Introduction of Analgesics, Hypnotics, Sedatives into Muscle, Percutaneous Approach (ICD-10-PCS; principal; 2022-02-06)
DX: M79.602 Pain in left arm (principal)
CPT/HCPCS: 73060-TC-LT-FY; 73070-TC-LT-FY; 73090-TC-LT-FY; 73110-TC-LT-FY; 73130-TC-LT-FY; 99285-25

== ENCOUNTER 2022-03-03 03:13 | Emergency (ER) | payer OTHER ==
[2022-03-03] MEDS ORDERED: ACETAMINOPHEN 500 MG TABLET (FP) PO ONE (03:32)
[2022-03-03] MEDS ORDERED: valACYclovir HCL 1000 MG TABLET PO ONE (03:33)
[2022-03-03] MEDS ORDERED: predniSONE 20 MG TABLET (UD) PO ONE (03:33)
[2022-03-03 03:39] VITALS: BP 158/80; PULSE 91; RESP 18; TEMP 98.7; BMI 34.4
[2022-03-03] MEDS ORDERED: ACETAMINOPHEN 325 MG TABLET (FP) ONE (03:42)
[2022-03-03] MEDS ORDERED: predniSONE 20 MG TABLET (UD) ONE (03:42)
[2022-03-03] MEDS ORDERED: valACYclovir HCL 500 MG TABLET (FP) ONE (03:43)
[2022-03-03] MEDS ORDERED: SUMATRIPTAN SUCCINATE 6 MG/0.5 ML VIAL SQ ONE (03:44)
[2022-03-03] MEDS ORDERED: MAG HYDROX/AL HYDROX/SIMETH -MYLANTA- ORAL SUSPENSION PO ONE (03:59)
[2022-03-03] MEDS ORDERED: FAMOTIDINE 20 MG TABLET PO ONE (03:59)
[2022-03-03] MEDS ORDERED: SUMATRIPTAN SUCCINATE 6 MG/0.5 ML VIAL ONE (04:05)
[2022-03-03] MEDS ORDERED: MAG HYDROX/AL HYDROX/SIMETH 30 ML UNIT-DOSE CUP ONE (04:33)
[2022-03-03] MEDS ORDERED: FAMOTIDINE 20 MG TABLET ONE (04:34)
[2022-03-03] MEDS ORDERED: IBUPROFEN 600 MG TABLET (FP) PO ONE ×2 (05:22→05:30)
== END 2022-03-03 05:32 | disposition home or self-care (01) ==
LOC: JER 03:13
PROC: 3E023GC Introduction of Other Therapeutic Substance into Muscle, Percutaneous Approach (ICD-10-PCS; principal; 2022-03-03)
DX: G51.0 Bell's palsy (principal); R51.9 Headache, unspecified
CPT/HCPCS: 70450-TC; 99284-25

== ENCOUNTER 2022-10-24 16:01 | Emergency (ER) | payer OTHER ==
[2022-10-24 16:14] VITALS: BMI 34.4
[2022-10-24] MEDS ORDERED: SODIUM CHLORIDE 1,000 ML IV STA (17:40)
[2022-10-24] MEDS ORDERED: FAMOTIDINE 20 MG/50 ML IVPB 20 MG/50 ML MG IVPB ONE ×2 (17:41→18:27)
[2022-10-24] MEDS ORDERED: ACETAMINOPHEN 1000 MG/100 ML BAG IVPB ONE (17:41)
[2022-10-24] MEDS ORDERED: METOCLOPRAMIDE HCL INJECTION 10 MG/2 ML VIAL IVPUSH ONE (17:41)
[2022-10-24 18:14] LABS: HCG,QUALITATIVE URINE Negative
[2022-10-24 18:17] LABS: EPI CELLS >36 /uL (0-25.1); HYALINE CASTS 0 /uL (0-3.1); URINE APPEARANCE CLOUDY; URINE BACTERIA >9,000 /uL (0-1359); URINE BILIRUBIN NEGATIVE (NEGATIVE); URINE COLOR YELLOW; URINE GLUCOSE (UA) 3+ (NEGATIVE); URINE KETONE 1+ (NEGATIVE); URINE LEUK ESTERASE 2+ (NEGATIVE); URINE NITRITE NEGATIVE (NEGATIVE); URINE PROTEIN 2+ (NEGATIVE); URINE RBC 90 /uL (0-23.9); URINE UROBILINOGEN 0.2 mg/dL (0.2-1.0); URINE WBC 2438 /uL (0-25.8)
[2022-10-24] MEDS ORDERED: METOCLOPRAMIDE HCL INJECTION 10 MG/2 ML VIAL ONE (18:27)
[2022-10-24] MEDS ORDERED: ACETAMINOPHEN INJECTION 100 ML IVPB ONE (18:27)
[2022-10-24 18:55] VITALS: BP 144/85; PULSE 88; RESP 20; TEMP 98.3
[2022-10-24 19:12] LABS: POTASSIUM 4.1 mmol/L (3.5-5.1)
[2022-10-24 19:13] LABS: BASO % 0.5 % (0-2.0); EOS % 1.2 % (0-4.5); HEMATOCRIT 40.9 % (32.4-45.2); HEMOGLOBIN 14.2 GM/dL (10.7-15.3); LYMPH % 16.1 % (8-40); MCH 28.5 pg (25.7-33.7); MCHC 34.6 g/dl (32.0-36.0); MEAN CELL VOLUME 82.4 fl (80-96); MEAN PLT VOLUME 6.9 fl (7.5-11.1); MONO % 4.9 % (3.8-10.2); NEUT % 77.3 % (42.8-82.8); PLATELET COUNT 559 10^3/uL (134-434); RBC 4.97 M/mm3 (3.60-5.2); RDW 13.7 % (11.6-15.6); WHITE BLOOD COUNT 11.7 K/mm3 (4.0-10.0)
[2022-10-24 19:14] LABS: CALCIUM 8.9 mg/dL (8.5-10.1)
[2022-10-24 19:15] LABS: ALBUMIN 3.4 g/dl (3.4-5.0); BLOOD UREA NITROGEN 10.8 mg/dL (7-18)
[2022-10-24 19:17] LABS: BILIRUBIN,DIRECT 0.1 mg/dL (0.0-0.2)
[2022-10-24 19:18] LABS: CREATININE 0.9 mg/dL (0.55-1.3)
[2022-10-24 19:19] LABS: BILIRUBIN,TOTAL 0.7 mg/dL (0.2-1); TOT PROT 7.1 g/dl (6.4-8.2)
[2022-10-24 19:22] LABS: INR 1.12 (0.83-1.09)
[2022-10-24 19:25] LABS: ACTIVATED PTT 31.2 SECONDS (25.2-36.5)
[2022-10-24] MEDS ORDERED: CEFTRIAXONE 1 GM in DEXTROSE 5%-WATER - 100 ML IVPB ONE (23:38)
[2022-10-24] MEDS ORDERED: cefTRIAXone SODIUM 1 GM VIAL ONE (23:40)
[2022-10-24] MEDS ORDERED: KETOROLAC TROMETHAMINE 15 MG/ML VIAL IVPUSH ONE (23:40)
[2022-10-24] MEDS ORDERED: KETOROLAC TROMETHAMINE 15 MG/ML VIAL ONE (23:46)
== END 2022-10-25 00:17 | disposition home or self-care (01) ==
LOC: JER 16:01
PROC: 3E03329 Introduction of Other Anti-infective into Peripheral Vein, Percutaneous Approach (ICD-10-PCS; principal; 2022-10-24)
PROC: 3E033GC Introduction of Other Therapeutic Substance into Peripheral Vein, Percutaneous Approach (ICD-10-PCS; 2022-10-24)
PROC: 3E033GC Introduction of Other Therapeutic Substance into Peripheral Vein, Percutaneous Approach (ICD-10-PCS; 2022-10-24)
PROC: 3E033GC Introduction of Other Therapeutic Substance into Peripheral Vein, Percutaneous Approach (ICD-10-PCS; 2022-10-24)
PROC: 3E033GC Introduction of Other Therapeutic Substance into Peripheral Vein, Percutaneous Approach (ICD-10-PCS; 2022-10-24)
PROC: 3E0337Z Introduction of Electrolytic and Water Balance Substance into Peripheral Vein, Percutaneous Approach (ICD-10-PCS; 2022-10-24)
DX: R10.11 Right upper quadrant pain (principal); R11.2 Nausea with vomiting, unspecified; M54.9 Dorsalgia, unspecified; N12 Tubulo-interstitial nephritis, not specified as acute or chronic
CPT/HCPCS: 36415; 71046-TC-FY; 74176-TC; 76700-TC; 80053; 81003; 82150; 82248; 83690; 84703; 85025; 85610; 85730; 87086; 87186; 99285-25

== ENCOUNTER 2023-03-14 00:35 | Emergency (ER) | payer OTHER ==
[2023-03-14 00:46] VITALS: BP 196/104; PULSE 86; RESP 18; TEMP 98.4; BMI 37.9
[2023-03-14 01:34] LABS: HEMATOCRIT 42.2 % (32.4-45.2); HEMOGLOBIN 14.3 GM/dL (10.7-15.3); MCH 28.4 pg (25.7-33.7); MCHC 33.9 g/dl (32.0-36.0); MEAN CELL VOLUME 83.8 fl (80-96); MEAN PLT VOLUME 7.7 fl (7.5-11.1); PLATELET COUNT 410 10^3/uL (134-434); RBC 5.03 M/mm3 (3.60-5.2); RDW 13.7 % (11.6-15.6); WHITE BLOOD COUNT 9.9 K/mm3 (4.0-10.0)
[2023-03-14] MEDS ORDERED: predniSONE 20 MG TABLET (UD) PO ONE (01:45)
[2023-03-14 01:55] LABS: ALBUMIN 3.1 g/dl (3.4-5.0); CALCIUM 8.7 mg/dL (8.5-10.1)
[2023-03-14 01:57] LABS: BLOOD UREA NITROGEN 13.8 mg/dL (7-18)
[2023-03-14 01:58] LABS: CREATININE 0.8 mg/dL (0.55-1.3)
[2023-03-14 02:00] LABS: TOT PROT 6.5 g/dl (6.4-8.2)
[2023-03-14] MEDS ORDERED: valACYclovir HCL 500 MG TABLET (FP) PO ONE (02:01)
[2023-03-14 02:02] LABS: BILIRUBIN,TOTAL 0.2 mg/dL (0.2-1)
[2023-03-14 02:04] LABS: POTASSIUM 3.8 mmol/L (3.5-5.1)
[2023-03-14] MEDS ORDERED: valACYclovir HCL 500 MG TABLET (FP) ONE (02:04)
[2023-03-14] MEDS ORDERED: predniSONE 20 MG TABLET (UD) ONE (02:04)
[2023-03-14] MEDS ORDERED: ACETAMINOPHEN 1000 MG/100 ML BAG IVPB ONE (02:06)
[2023-03-14] MEDS ORDERED: ACETAMINOPHEN 325 MG TABLET (FP) ONE (02:08)
[2023-03-14] MEDS ORDERED: ACETAMINOPHEN 325 MG TABLET (FP) PO ONE (02:09)
== END 2023-03-14 03:30 | disposition home or self-care (01) ==
LOC: JER 00:35
DX: R29.810 Facial weakness (principal); B02.21 Postherpetic geniculate ganglionitis; Z20.822 Contact with and (suspected) exposure to COVID-19
CPT/HCPCS: 0241U-QW; 36415; 70450-TC; 80053; 85027; 99284-25

== ENCOUNTER 2024-01-02 20:50 | Emergency (ER) | payer OTHER ==
[2024-01-02 21:03] VITALS: TEMP 98.8; BMI 37.1
[2024-01-02] MEDS ORDERED: FAMOTIDINE 20 MG/50 ML IVPB 20 MG/50 ML MG IVPB ONE (21:13)
[2024-01-02] MEDS ORDERED: methylPREDNISolone NA SUCC 125 MG/2 ML VIAL ONE (21:13)
[2024-01-02] MEDS: FAMOTIDINE 20 MG/50 ML IVPB 20 MG/50 ML MG IVPB ONE (21:22)
[2024-01-02] MEDS: methylPREDNISolone NA SUCC 125 MG/2 ML VIAL IVPB ONE (21:22)
[2024-01-02 23:07] VITALS: BP 141/65; PULSE 81; RESP 18
== END 2024-01-02 23:10 | disposition home or self-care (01) ==
LOC: JER 20:50
PROC: 3E033GC Introduction of Other Therapeutic Substance into Peripheral Vein, Percutaneous Approach (ICD-10-PCS; principal; 2024-01-02)
DX: L29.9 Pruritus, unspecified (principal); T78.1XXA Other adverse food reactions, not elsewhere classified, initial encounter
CPT/HCPCS: 93005; 93010; 99284-25

== ENCOUNTER 2024-02-19 10:45 | Emergency (ER) | payer OTHER ==
[2024-02-19 11:04] VITALS: BP 159/86; PULSE 72; RESP 17; TEMP 98.1; BMI 35.6
[2024-02-19] MEDS ORDERED: KETOROLAC TROMETHAMINE 30 MG/1 ML VIAL ONE (13:01)
[2024-02-19] MEDS: KETOROLAC TROMETHAMINE 30 MG/1 ML VIAL IM ONE (13:15)
[2024-02-19] MEDS: SODIUM CHLORIDE 0.9% 1000 ML INFUS.BAG IV ONE (13:15)
[2024-02-19 13:24] LABS: BASO % 0.9 % (0-2.0); EOS % 2.3 % (0-4.5); HEMATOCRIT 45.8 % (32.4-45.2); HEMOGLOBIN 15.7 GM/dL (10.7-15.3); LYMPH % 22.3 % (8-40); MCH 28.7 pg (25.7-33.7); MCHC 34.2 g/dl (32.0-36.0); MEAN CELL VOLUME 83.8 fl (80-96); MEAN PLT VOLUME 8.1 fl (7.5-11.1); MONO % 4.9 % (3.8-10.2); NEUT % 69.6 % (42.8-82.8); PLATELET COUNT 355 10^3/uL (134-434); RBC 5.46 M/mm3 (3.60-5.2); RDW 13.1 % (11.6-15.6); WHITE BLOOD COUNT 9.5 K/mm3 (4.0-10.0)
[2024-02-19 13:30] LABS: PH,URINE 5.5 (5.0-8.0); URINE APPEARANCE CLEAR; URINE BILIRUBIN NEGATIVE (NEGATIVE); URINE COLOR YELLOW; URINE GLUCOSE (UA) 3+ (NEGATIVE); URINE KETONE NEGATIVE (NEGATIVE); URINE LEUK ESTERASE NEGATIVE (NEGATIVE); URINE NITRITE NEGATIVE (NEGATIVE); URINE PROTEIN 3+ (NEGATIVE); URINE RBC 14 /uL (0-23.9); URINE UROBILINOGEN 0.2 mg/dL (0.2-1.0); URINE WBC 108 /uL (0-25.8)
[2024-02-19 13:31] LABS: EPI CELLS 16 /uL (0-25.1); HYALINE CASTS 0 /uL (0-3.1); URINE BACTERIA 781 /uL (0-1359)
[2024-02-19 13:48] LABS: POTASSIUM 4.2 mmol/L (3.5-5.1)
[2024-02-19 13:49] LABS: CALCIUM 9.2 mg/dL (8.5-10.1)
[2024-02-19 13:50] LABS: BLOOD UREA NITROGEN 15.1 mg/dL (7-18)
[2024-02-19 13:53] LABS: CREATININE 0.9 mg/dL (0.55-1.3)
[2024-02-20 01:13] LABS: HIV INTERPRETATION NEGATIVE (NEGATIVE)
== END 2024-02-19 18:32 | disposition home or self-care (01) ==
LOC: JER 10:45
PROC: 3E0133Z Introduction of Anti-inflammatory into Subcutaneous Tissue, Percutaneous Approach (ICD-10-PCS; principal; 2024-02-19)
DX: N30.01 Acute cystitis with hematuria (principal); N83.201 Unspecified ovarian cyst, right side; R10.9 Unspecified abdominal pain; M54.50 Low back pain, unspecified; R11.0 Nausea
CPT/HCPCS: 36415; 74176-TC; 80048; 81003; 84703; 85025; 86803; 87389; 93005; 93010; 99285-25